=== PATIENT | female | born 1985 | race Caucasian/White ===

== ENCOUNTER → 2022-07-07 08:53 | Outpatient (BNVA) | payer MEDICARE, MEDICAID, SELFPAY | PROVIDERS: PCP Internal Medicine; Referring Provider Internal Medicine; Visit Provider Surgery | DX: E11.9 Type 2 diabetes mellitus without complications (principal); J45.909 Unspecified asthma, uncomplicated; E66.9 Obesity, unspecified; R10.9 Unspecified abdominal pain | CPT/HCPCS: 99203 ==

== ENCOUNTER 2023-08-18 10:50 | Emergency (ER) | payer MEDICARE, MEDICAID, SELFPAY ==
[2023-08-18 10:59] VITALS: BP 140/72; PULSE 100; RESP 20; TEMP 37.2; O2SAT 99
--- OUTSIDE RECORDS SUMMARY | 2023-08-18 11:08 | XMS_ITS | Continuity of Care Document ---
Author Name Unknown Organization [facility] Address [address] [place] [address] Care Team Providers Care Neurosurgical Physician Assistant Name Role Phone Mari Diggs Primary Care Physician [phone] Encounter [facility] Date(s): 01/27/23 - 01/27/[address] [address] Discharge Disposition: Home Allergies, Adverse Reactions, Alerts Substance Reaction Severity Status GRAPEFRUIT Unknown Active penicillins Urticaria Unknown Active sulfa drugs Swollen face Unknown Active Cilantro Unknown Active Assessment and Plan Future Appointments Future Scheduled Tests Laboratory* Hemoglobin A1c 12/26/22 Radiology* MG Mammo Diagnostic Bilateral w/ Negrito 01/27/23 * US Breast Limited Left 01/26/23 Immunizations Given and Recorded Vaccine Date Status Refusal Reason influenza virus vaccine, inactivated 08/08/22 Give n influenza virus vaccine, inactivated 09/23/16 Preet rded influenza virus vaccine, inactivated 07/19/11 Preet rded influenza virus vaccine, live 07/20/21 Recorded influenza virus vaccine, live 07/11/20 Recorded influenza virus vaccine, live 1 09/05/19 Recorded SARS-CoV-2 (COVID-19) mRNA-1273 vaccine 03/09/21 R ecorded SARS-CoV-2 (COVID-19) mRNA-1273 vaccine 02/09/21 R ecorded tetanus/diphth/pertuss (Tdap) adult/adol 10/07/10 Recorded 1Result Comment: pt tolerated well Medications AAA - Misc Prescription 1 strip, 100 EA, USE 1 STRIP TO CHECK GLUCOSE ONCE DAILY, # 100 strip, 0 Refill(s) Start Date: 03/04/22 Status: Ordered buPROPion 300 mg/24 hours (XL) oral tablet, extended release 300 mg = 1 tab, Oral, every morning, # 30 tab, 2 Refill(s), Pharmacy: [facility], 163, cm, 07/01/22 17:43:00 EDT, Height/Length Dosing, 126, kg, 07/01/22 17:43:00 EDT, Weight Dosing Start Date: 11/07/22 Stop Date: 02/05/23 Status: Ordered gabapentin 300 mg oral capsule 300 mg = 1 cap, Oral, every night at bedtime, 28 cap, # 30 cap, 2 Refill(s), Pharmacy: [facility], 163, cm, 07/01/22 17:43:00 EDT, Height/Length Dosing, 126, kg, 07/01/22 17:43:00 EDT, Weight Dosing Start Date: 01/26/23 Status: Ordered hydroCHLOROthiazide 25 mg oral tablet 25 mg = 1 tab, Oral, Daily, 28 tab, 0 Refill(s) Start Date: 03/04/22 Status: Ordered lisinopril 20 mg oral tablet 20 mg = 1 tab, Oral, Daily, # 90 tab, 3 Refill(s), Pharmacy: [facility] Start Date: 04/01/22 Stop Date: 03/27/23 Status: Ordered loratadine 10 mg oral tablet 10 mg = 1 tab, Oral, Daily, # 90 tab, 3 Refill(s), Pharmacy: [facility] Start Date: 04/01/22 Stop Date: 03/27/23 Status: Ordered LORazepam 0.5 mg oral tablet 0.5 mg = 1 tab, Oral, TID, # 84 tab, 1 Refill(s), Pharmacy: [facility], 163, cm, 07/01/22 17:43:00 EDT, Height/Length Dosing, 126, kg, 07/01/22 17:43:00 EDT, Weight Dosing Start Date: 12/31/22 Stop Date: 02/25/23 Status: Ordered LORazepam 1 mg oral tablet 1 mg = 1 tab, Oral, BID, # 14 tab, 1 Refill(s), Pharmacy: [facility], 163, cm, 07/01/22 17:43:00 EDT, Height/Length Dosing, 126, kg, 07/01/22 17:43:00 EDT, Weight Dosing Start Date: 11/07/22 Stop Date: 11/21/22 Status: Ordered omeprazole 40 mg oral delayed release capsule 40 mg = 1 cap, Oral, Daily, # 90 cap, 3 Refill(s), Pharmacy: [facility] Start Date: 04/01/22 Stop Date: 03/27/23 Status: Ordered ONETOUCH DELICA CHRISTIE 33G MIS ONETOUCH DELICA CHRISTIE 33G MIS, use as directed to teest blood sugar once daily Start Date: 05/12/22 Status: Ordered ONETOUCH ULTRA 2 KIT ONETOUCH ULTRA 2 KIT, use as diredcted to check glucose once daily, 0 Refill(s) Start Date: 05/12/22 Status: Ordered Rexulti 4 mg oral tablet 4 mg = 1 tab, Oral, Daily, # 30 tab, 2 Refill(s), Pharmacy: [facility], 163, cm, 07/01/22 17:43:00 EDT, Height/Length Dosing, 126, kg, 07/01/22 17:43:00 EDT, Weight Dosing Start Date: 11/07/22 Stop Date: 02/05/23 Status: Ordered Vitamin B6 100 mg oral tablet 100 mg = 1 tab, Oral, TID w/ Meals, for 30 days, # 90 tab, 2 Refill(s), Pharmacy: [facility], 163, cm, 07/01/22 17:43:00 EDT, Height/Length Dosing, 126, kg, 07/01/22 17:43:00 EDT, Weight Dosing Start Date: 11/07/22 Stop Date: 02/05/23 Status: Ordered Vitamin D3 2000 intl units oral capsule 2 caps, Oral, Daily, # 180 cap, 3 Refill(s), Pharmacy: [facility] Start Date: 03/05/22 Stop Date: 02/28/23 Status: Ordered Wellbutrin XL 150 mg/24 hours oral tablet, extended release 150 mg = 1 tab, Oral, every morning, for 30 days, # 30 tab, 2 Refill(s), [facility], cm, 07/01/22 17:43:00 EDT, Height/Length Dosing, 126, kg, 07/01/22 17:43:00 EDT, Weight Dosing Start Date: 11/07/22 Stop Date: 02/05/23 Status: Ordered Problem List Condition Confirmation Course Effective Dates Status H ealth Status Informant Anxiety disorder Confirmed 10/26/18 Active Left breast mass Confirmed Active Fatigue Confirmed Active Hypertensive disorder Confirmed Active Leukocytosis Confirmed 10/18/20 Active Mixed hyperlipidemia Confirmed Active Nightmares associated with chronic post-traumatic stress disorder Confirmed Active Obstructive sleep apnea Confirmed Active Panic disorder without agoraphobia Confirmed Active Medication management Confirmed Active Polycystic ovaries Confirmed Active Posttraumatic stress disorder Confirmed Active Restless legs syndrome Confirmed Active Tremor Confirmed 06/14/21 Active Trigeminal neuralgia Confirmed Active DM2 (diabetes mellitus, type 2) Confirmed Active Vitamin D deficiency Confirmed Active Procedures Procedure Date Related Diagnosis Body Site Status TLH, DAVE, lap. USVVS 05/15/20 Compl eted PAP smear preparation 1 01/10/19 C ompleted Laparoscopic bilateral salpingectomy 10/03/18 Completed Mammogram - screening 03/07/15 Com pleted Left wrist mass excision 2013 Completed Dilation and curettage 2 10/18/11 Completed Tonsillectomy and adenoidectomy 10/18/96 Completed Fatty tumor removal Compl eted 1Due next 2023 in December. Neg. 2For inevitable SAB Social History Social History Type Response Tobacco Current everyday tob acco user Tobacco Use:. 1 PPD per day. Sex Female Patient Care team information Care Team Personnel Name: Mari Diggs Position: Physician Member Role: Primary Care Physician Address: Address: [facility] [id number] [place] [address] Name: Rl Harmon [address] Position: Dietitian Member Role: Resolution Analyst Care Team Related Persons Name: MAGY STEVE Address: Home [address] [place] [phone]
--- OUTSIDE RECORDS SUMMARY | 2023-08-18 11:08 | XMS_ITS | Continuity of Care Document ---
Author Name Unknown Organization [facility] Address [address] [place] [address] Care Team Providers Care Program Counselor Name Role Phone Mari Diggs Primary Care Physician Encounter [facility] [id number] Date(s): 10/09/22 - 10/09/[address] [address] Discharge Disposition: Home or Self Care Attending Physician: Mari Diggs Admitting Physician: Mari Diggs Referring Physician: Mari Diggs Allergies, Adverse Reactions, Alerts Substance Reaction Severity Status GRAPEFRUIT Unknown Active penicillins Urticaria Unknown Active sulfa drugs Swollen face Unknown Active Assessment and Plan Future Appointments Immunizations Given and Recorded Vaccine Date Status [...] 0 Refill(s) Start Date: 03/04/22 Status: Ordered azithromycin 250 mg oral tablet See Instructions, take 2 tabs on day 1 and 1 tabs on day 2-5, # 6 tab, 0 Refill(s), Pharmacy: [id number], 163, cm, 07/01/22 17:43:00 EDT, Height/Length Dosing, 126, kg, 07/01/22 17:43:00 EDT, Weight Dosing Start Date: 10/09/22 Status: Ordered buPROPion 300 mg/24 hours (XL) oral tablet, extended release 300 mg = 1 tab, Oral, every morning, # 30 tab, 2 Refill(s), Pharmacy: [facility], 163, cm, 07/01/22 17:43:00 EDT, Height/Length Dosing, 126, kg, 07/01/22 17:43:00 EDT, Weight Dosing Start Date: 10/08/22 Stop Date: 01/06/23 Status: Ordered gabapentin 300 mg oral capsule 300 mg = 1 cap, Oral, every night at bedtime, 28 cap, # 30 cap, 2 Refill(s), Pharmacy: [facility], 163, cm, 07/01/22 17:43:00 EDT, Height/Length Dosing, 126, kg, 07/01/22 17:43:00 EDT, Weight Dosing Start Date: 10/07/22 Status: Ordered hydroCHLOROthiazide 25 mg oral tablet 25 mg = 1 tab, Oral, Daily, 28 tab, 0 Refill(s) Start Date: 03/04/22 Status: Ordered Imodium Multi-Symptom Relief 2 mg-125 mg oral tablet 1 tab, Oral, every 6 hr, PRN as needed for loose stool, # 40 tab, 0 Refill(s), Pharmacy: [id number], 163, cm, 07/01/22 17:43:00 EDT, Height/Length Dosing, 126, kg, 07/01/22 17:43:00 EDT, Weight Dosing Start Date: 09/10/22 Status: Ordered ipratropium-albuterol 0.5 mg-2.5 mg/3 mL inhalation solution 3 mL, NEB, QID, # 30 EA, 0 Refill(s), Pharmacy: [facility], 163, cm, 07/01/22 17:43:00 EDT, Height/Length Dosing, 126, kg, 07/01/22 17:43:00 EDT, Weight Dosing Start Date: 10/09/22 Status: Ordered ipratropium-albuterol CFC free 20 mcg-100 mcg/inh inhalation aerosol 1 puffs, Inhale, QID, # 4 g, 0 Refill(s), Pharmacy: [facility] [facility] [id number], 163, cm, 07/01/22 17:43:00 EDT, Height/Length Dosing, 126, kg, 07/01/22 17:43:00 EDT, Weight Dosing Start Date: 10/09/22 Status: Ordered lisinopril 20 mg oral tablet 20 mg = 1 tab, Oral, Daily, # 90 tab, 3 Refill(s), Pharmacy: [facility] Start Date: 04/01/22 Stop Date: 03/27/23 Status: Ordered loratadine 10 mg oral tablet 10 mg = 1 tab, Oral, Daily, # 90 tab, 3 Refill(s), Pharmacy: [facility] Start Date: 04/01/22 Stop Date: 03/27/23 Status: Ordered LORazepam 1 mg oral tablet 1 mg = 1 tab, Oral, BID, Please fill 09/15/2022, # 14 tab, 1 Refill(s), Pharmacy: [facility], 163, cm, 07/01/22 17:43:00 EDT, Height/Length Dosing, 126, kg, 07/01/22 17:43:00 EDT, Weight Dosing Start Date: 09/05/22 Stop Date: 09/19/22 Status: Ordered nicotine 21 mg/24 hr transdermal film, extended release 1 patches, TD, Daily, # 21 patches, 0 Refill(s), Pharmacy: [facility], 162, cm, 04/07/22 9:11:00 EDT, Height/Length Dosing, 130, kg, 04/07/22 9:11:00 EDT, Weight Dosing Start Date: 06/09/22 Status: Ordered omeprazole 40 mg oral delayed release capsule 40 mg = 1 cap, Oral, Daily, # 90 cap, 3 Refill(s), Pharmacy: [facility] Start Date: 04/01/22 Stop Date: 03/27/23 Status: Ordered ONETOUCH DELICA CHRISTIE 33G MIS ONETOUCH DELICA CHRISTIE 33G MIS, use as directed to teest blood sugar once daily Start Date: 05/12/22 Status: Ordered ONETOUCH ULTRA 2 KIT ONETOUCH ULTRA 2 KIT, use as diredcted to check glucose once daily, 0 Refill(s) Start Date: 05/12/22 Status: Ordered Reguloid oral powder for reconstitution 3.4 g =, Oral, Daily, for 90 days, # 102 g, 0 Refill(s), [facility], 162, cm, 04/07/22 9:11:00 EDT, Height/Length Dosing, 130, kg, 04/07/22 9:11:00 EDT, Weight Dosing Start Date: 06/18/22 Status: Ordered Rexulti 4 mg oral tablet 4 mg = 1 tab, Oral, Daily, # 30 tab, 2 Refill(s), Pharmacy: [facility], 163, cm, 07/01/22 17:43:00 EDT, Height/Length Dosing, 126, kg, 07/01/22 17:43:00 EDT, Weight Dosing Start Date: 09/05/22 Stop Date: 12/04/22 Status: Ordered Trulicity Pen 3 mg/0.5 mL subcutaneous solution 3 mg = 0.5 mL, Subcutaneous, every week, rotate injection sites Note dose increase, # 6 mL, 1 Refill(s), Pharmacy: [facility], 163, cm, 07/01/22 17:43:00 EDT, Height/Length Dosing, 126,kg, 07/01/22 17:43:00 EDT, Weight Dosing Start Date: 07/15/22 Status: Ordered Vitamin B6 100 mg oral tablet 100 mg = 1 tab, Oral, TID w/ Meals, for 30 days, # 90 tab, 2 Refill(s), Pharmacy: [facility], 163, cm, 07/01/22 17:43:00 EDT, Height/Length Dosing, 126, kg, 07/01/22 17:43:00 EDT, Weight Dosing Start Date: 08/04/22 Stop Date: 11/02/22 Status: Ordered Vitamin D3 2000 intl units oral capsule 2 caps, Oral, Daily, # 180 cap, 3 Refill(s), Pharmacy: [facility] Start Date: 03/05/22 Stop Date: 02/28/23 Status: Ordered Wellbutrin XL 150 mg/24 hours oral tablet, extended release 150 mg = 1 tab, Oral, every morning, for 30 days, # 30 tab, 2 Refill(s), Pharmacy: [facility], 163, cm, 07/01/22 17:43:00 EDT, Height/Length Dosing, 126, kg, 07/01/22 17:43:00 EDT, Weight Dosing Start Date: 08/04/22 Stop Date: 11/02/22 Status: Ordered Problem List Condition Confirmation Course Effective Dates Status H ealth Status Informant Anxiety disorder Confirmed 10/26/18 Active Post-traumatic stress disorder, chronic Confirmed Active Fatigue Confirmed Active Hypertensive disorder Confirmed Active Leukocytosis Confirmed 10/18/20 Active Mixed hyperlipidemia Confirmed Active Moderately severe recurrent major depression Confirmed 09/24/21 Active Nightmares associated with chronic post-traumatic stress disorder Confirmed Active Obstructive sleep apnea Confirmed Active Panic disorder without agoraphobia Confirmed Active Polycystic ovaries Confirmed Active Posttraumatic stress disorder Confirmed Active Restless legs syndrome Confirmed Active Tremor Confirmed 06/14/21 Active Trigeminal neuralgia Confirmed Active DM2 (diabetes mellitus, type 2) Confirmed Active Vitamin D deficiency Confirmed Active Procedures Procedure Date Related Diagnosis Body Site Status TLH, DAVE, lap. USVVS 05/15/20 Compl eted Laparoscopic bilateral salpingectomy 10/03/18 Completed Left wrist mass excision 2013 Completed Dilation and curettage 1 10/18/11 Completed Tonsillectomy and adenoidectomy 10/18/96 Completed Fatty tumor removal Compl eted 1For inevitable SAB Results Laboratory List Name Date SARS-CoV-2 (COVID-19)/Flu/RSV ([facility]Xpert ) 10/09/22 Most recent to oldest [Reference Range]: 1 Employed in healthcare? No *NA* (10/09/22 9:48 AM) Symptomatic as defined by CDC? Yes *NA* (10/09/22 9:48 AM) Date of onset (Lab) 02-OCT-2022 *Unknown* (10/09/22 9:48 AM) Hospitalized due to COVID-19? No *NA* (10/09/22 9:48 AM) In ICU? No *NA* (10/09/22 9:48 AM) Group care resident? No *NA* (10/09/22 9:48 AM) status? Not *NA* (10/09/22 9:48 AM) SARS-CoV-2(Covid19)PCR([facility]Xpert COVFLURSV) [Negative] Negative (10/09/22 9:48 AM) Flu A ([facility]Xpert COVFLURSV) [Negative] Nega tive (10/09/22 9:48 AM) RSV ([facility]pert COVFLURSV) [Negative] Negati ve (10/09/22 9:48 AM) Flu B ([facility]Xpert COVFLURSV) [Negative] Nega tive (10/09/22 9:48 AM) Social History Social History Type Response Tobacco Current everyday tob acco user Tobacco Use:. 1 PPD per day. Sex Female Patient Care team information Personnel Name: Mari Diggs Address: Address: [facility] [address]
--- OUTSIDE RECORDS SUMMARY | 2023-08-18 11:09 | XMS_ITS | Continuity of Care Document ---
Author Name Unknown Organization [facility] Address [address] [place] [address] Care Team Providers Care Boiler Plant Worker Name Role Phone Mari Diggs Primary Care Physician Encounter [facility] [id number] Date(s): 02/12/23 - 02/12/[address] [phone] [place] Encounter Diagnosis Left breast mass(Discharge Diagnosis) - 02/12/23 Discharge Disposition: Home or Self Care Attending Physician: Avtar Goldberg MD Admitting Physician: Avtar Goldberg MD Referring Physician: Avtar Goldberg MD Allergies, Adverse Reactions, Alerts Substance Reaction Severity Status GRAPEFRUIT Unknown Active penicillins Urticaria Unknown Active sulfa drugs Swollen face Unknown Active Cilantro Unknown Active Assessment and Plan Future Appointments Future Scheduled Tests Laboratory* Comprehensive Metabolic Panel 02/05/23 * Hemoglobin A1c 12/26/22 * Hemoglobin A1c 02/05/23 Immunizations Given and Recorded Vaccine Date Status [...] morning, # 30 tab, 2 Refill(s), Pharmacy: [facility], 163, cm, 07/01/22 17:43:00 EDT, Height/Length Dosing, 126, kg, 07/01/22 17:43:00 EDT, Weight Dosing Start Date: 11/07/22 Stop Date: 02/05/23 Status: Ordered gabapentin 300 mg oral capsule 300 mg = 1 cap, Oral, every night at bedtime, 28 cap, # 30 cap, 2 Refill(s), Pharmacy: [facility], 163, cm, 07/01/22 17:43:00 EDT, Height/Length Dosing, 126, kg, 07/01/22 17:43:00 EDT, Weight Dosing Start Date: 01/26/23 Status: Ordered hydroCHLOROthiazide 25 mg oral tablet 25 mg = 1 tab, Oral, Daily, 28 tab, 0 Refill(s) Start Date: 03/04/22 Status: Ordered lisinopril 20 mg oral tablet 20 mg = 1 tab, Oral, Daily, # 90 tab, 3 Refill(s), Pharmacy: [facility] Start Date: 04/01/22 Stop Date: 03/27/23 Status: Ordered loratadine 10 mg oral tablet 10 mg = 1 tab, Oral, Daily, # 90 tab, 3 Refill(s), Pharmacy: [facility] Start Date: 04/01/22 Stop Date: 03/27/23 Status: Ordered LORazepam 0.5 mg oral tablet 0.5 mg = 1 tab, Oral, TID, # 84 tab, 2 Refill(s), Pharmacy: [facility], 163, cm, 07/01/22 17:43:00 EDT, Height/Length Dosing, 126, kg, 07/01/22 17:43:00 EDT, Weight Dosing Start Date: 02/06/23 Stop Date: 05/01/23 Status: Ordered magnesium oxide 500 mg oral capsule 500 mg = 1 cap, Oral, Daily, # 90 cap, 3 Refill(s) Start Date: 02/05/23 Stop Date: 05/06/23 Status: Ordered omeprazole 40 mg oral delayed release capsule 40 mg = 1 cap, Oral, Daily, # 90 cap, 3 Refill(s), Pharmacy: [facility] Start Date: 04/01/22 Stop Date: 03/27/23 Status: [...] Daily, # 30 tab, 2 Refill(s), Pharmacy: [facility], 163, cm, 07/01/22 17:43:00 EDT, Height/Length Dosing, 126, kg, 07/01/22 17:43:00 EDT, Weight Dosing Start Date: 11/07/22 Stop Date: 02/05/23 Status: Ordered Trulicity Pen 0.75 mg/0.5 mL subcutaneous solution 0.75 mg = 0.5 mL, Subcutaneous, every week, rotate injection sites, # 2.5 mL, 11 Refill(s), Pharmacy: [facility], 163, cm, 07/01/22 17:43:00 EDT, Height/Length Dosing, 126, kg, 07/01/2217:43:00 EDT, Weight Dosing Start Date: 02/05/23 Stop Date: 01/31/24 Status: Ordered Vitamin B6 100 mg oral tablet 100 mg = 1 tab, Oral, TID w/ Meals, for 30 days, # 90 tab, 2 Refill(s), Pharmacy: [facility], 163, cm, 07/01/22 17:43:00 EDT, Height/Length Dosing, 126, kg, 07/01/22 17:43:00 EDT, Weight Dosing Start Date: 11/07/22 Stop Date: 02/05/23 Status: Ordered Vitamin D3 2000 intl units oral capsule 2 caps, Oral, Daily, # 180 cap, 3 Refill(s), Pharmacy: [facility] Start Date: 03/05/22 Stop Date: 02/28/23 Status: Ordered Wellbutrin XL 150 mg/24 hours oral tablet, extended release 150 mg = 1 tab, Oral, every morning, for 30 days, # 30 tab, 2 Refill(s), Pharmacy: [facility], 163, cm, 07/01/22 17:43:00 EDT, Height/Length Dosing, 126, kg, 07/01/22 17:43:00 EDT, Weight Dosing Start Date: 11/07/22 Stop Date: 02/05/23 Status: Ordered Problem List Condition Confirmation Course Effective Dates Status H ealth Status Informant Anxiety disorder Confirmed 10/26/18 Active Left breast mass Confirmed Active Chronic constipation Confirmed Active Fatigue Confirmed Active Hypertensive disorder [...] Primary Care Physician Address: Address: [facility] [id number] [place] [address] Name: Rl Harm[address] Position: Dietitian Member Role: Appliance Repairer Care Team Related Persons Name: MAGY STEVE Address: [address], [id number]
--- OUTSIDE RECORDS SUMMARY | 2023-08-18 11:09 | XMS_ITS | Continuity of Care Document ---
Author Name Unknown Organization [facility] Address [address] [place] [address] Care Team Providers Care Lease Out Man Name Role Phone Mari Diggs Primary Care Physician [phone] [facility] [id number] Date(s): 09/10/22 - 09/10/[address] [address] Discharge Disposition: Home or Self Care Attending Physician: Konstantin Hernandes NP Admitting Physician: Konstantin Hernandes TEXTILE DESIGNS SALES REPRESENTATIVE Allergies, Adverse Reactions, Alerts Substance Reaction Severity [...] 0 Refill(s) Start Date: 03/04/22 Status: Ordered Belsomra 5 mg oral tablet Start Date: 05/12/22 Status: Ordered buPROPion 300 mg/24 hours (XL) oral tablet, extended release 300 mg = 1 tab, Oral, every morning, # 30 tab, 2 Refill(s), Pharmacy: [facility], 163, cm, 07/01/22 17:43:00 EDT, Height/Length Dosing, 126, kg, 07/01/22 17:43:00 EDT, Weight Dosing Start Date: 08/04/22 Stop Date: 11/02/22 Status: Ordered docusate sodium 100 mg oral capsule 200 mg = 2 cap, Oral, Daily, PRN constipation, # 180 cap, 3 Refill(s), Pharmacy: [facility], 163, cm, 07/01/22 17:43:00 EDT, Height/Length Dosing, 126, kg, 07/01/22 17:43:00 EDT, WeightDosing Start Date: 07/22/22 Stop Date: 07/17/23 Status: Ordered doxycycline hyclate 100 mg oral capsule 100 mg = 1 cap, Oral, BID, # 20 cap, 0 Refill(s), Pharmacy: [facility], 162, cm, 04/07/22 9:11:00 EDT, Height/Length Dosing, 130, kg, 04/07/22 9:11:00 EDT, Weight Dosing Start Date: 06/26/22 Stop Date: 07/06/22 Status: Ordered gabapentin 300 mg oral capsule 300 mg = 1 cap, Oral, every night at bedtime, 28 cap, # 30 cap, 2 Refill(s), Pharmacy: [facility], 163, cm, 07/01/22 17:43:00 EDT, Height/Length Dosing, 126, kg, 07/01/22 17:43:00 EDT, Weight Dosing Start Date: 07/21/22 Status: Ordered hydroCHLOROthiazide 25 mg oral tablet 25 mg = 1 tab, Oral, Daily, 28 tab, 0 Refill(s) Start Date: 03/04/22 Status: Ordered Imodium Multi-Symptom Relief 2 mg-125 mg oral tablet 1 tab, Oral, every 6 hr, PRN as needed for loose stool, # 40 tab, 0 Refill(s), Pharmacy: [facility], 163, cm, 07/01/22 17:43:00 EDT, Height/Length Dosing, 126, kg, 07/01/22 17:43:00 EDT, Weight Dosing Start Date: 09/10/22 Status: Ordered lisinopril 20 mg oral tablet 20 mg = 1 tab, Oral, Daily, # 90 tab, 3 Refill(s), Pharmacy: [facility] Start Date: 04/01/22 Stop Date: 03/27/23 Status: Ordered loratadine 10 mg oral tablet 10 mg = 1 tab, Oral, Daily, # 90 tab, 3 Refill(s), Pharmacy: [facility] Start Date: 04/01/22 Stop Date: 03/27/23 Status: Ordered LORazepam 0.5 mg oral tablet 0.5 mg = 1 tab, Oral, TID, # 84 tab, 2 Refill(s), Pharmacy: [facility], 163, cm, 07/01/22 17:43:00 EDT, Height/Length Dosing, 126, kg, 07/01/22 17:43:00 EDT, Weight Dosing Start Date: 08/04/22 Stop Date: 10/27/22 Status: Ordered LORazepam 1 mg oral tablet 1 mg = 1 tab, Oral, BID, Please fill 09/15/2022, # 14 tab, 1 Refill(s), Pharmacy: [facility], 163, cm, 07/01/22 17:43:00 EDT, Height/Length Dosing, 126, kg, 07/01/22 17:43:00 EDT, Weight Dosing Start Date: 09/05/22 Stop Date: 09/19/22 Status: Ordered MiraLax oral powder for reconstitution 17 g, Oral, Daily, dissolve in water before taking, # 255 g, 0 Refill(s), [facility], 162, cm, 04/07/22 9:11:00 EDT, Height/Length Dosing, 130, kg, 04/07/22 9:11:00 EDT, Weight Dosing Start Date: 06/30/22 Status: Ordered nicotine 21 mg/24 hr transdermal film, extended release 1 patches, TD, Daily, # 21 patches, 0 Refill(s), Pharmacy: [facility], 162, cm, 04/07/22 9:11:00 EDT, Height/Length Dosing, 130, kg, 04/07/22 9:11:00 EDT, Weight Dosing Start Date: 06/09/22 Status: Ordered omeprazole 40 mg oral delayed release capsule 40 mg = 1 cap, Oral, Daily, # 90 cap, 3 Refill(s), Pharmacy: [facility] Start Date: 04/01/22 Stop Date: 03/27/23 [...] days, # 102 g, 0 Refill(s), Pharmacy: [facility], 162, cm, 04/07/22 9:11:00 EDT, Height/Length Dosing, 130, kg, 04/07/22 9:11:00 EDT, Weight Dosing Start Date: 06/18/22 Status: Ordered Rexulti 3 mg oral tablet 3 mg = 1 tab, Oral, Daily, # 30 tab, 2 Refill(s), Pharmacy: [facility], 163, cm, 07/01/22 17:43:00 EDT, Height/Length Dosing, 126, kg, 07/01/22 17:43:00 EDT, Weight Dosing Start Date: 08/04/22 Stop Date: 11/02/22 Status: Ordered Rexulti 4 mg oral tablet 4 mg = 1 tab, Oral, Daily, # 30 tab, 2 Refill(s), Pharmacy: [facility], 163, cm, 07/01/22 17:43:00 EDT, Height/Length Dosing, 126, kg, 07/01/22 17:43:00 EDT, Weight Dosing Start Date: 09/05/22 Stop Date: 12/04/22 Status: Ordered senna 8.6 mg oral tablet 17.2 mg = 2 tab, Oral, Daily, PRN constipation, # 60 tab, 0 Refill(s), Pharmacy: [facility], 163, cm, 07/01/22 17:43:00 EDT, Height/Length Dosing, 126, kg, 07/01/22 17:43:00 EDT, WeightDosing Start Date: 07/02/22 Status: Ordered Trulicity Pen 3 mg/0.5 mL subcutaneous solution 3 mg = 0.5 mL, Subcutaneous, every week, rotate injection sites Note dose increase, # 6 mL, 1 Refill(s), Pharmacy: [facility], 163, cm, 07/01/22 17:43:00 EDT, Height/Length Dosing, 126,kg, 07/01/22 17:43:00 EDT, Weight Dosing Start Date: 07/15/22 Status: Ordered Vitamin B6 100 mg oral tablet 100 mg = 1 tab, Oral, TID w/ Meals, for 30 days, # 90 tab, 2 Refill(s), Pharmacy: [facility], 163, cm, 07/01/22 17:43:00 EDT, Height/Length Dosing, 126, kg, 07/01/22 17:43:00 EDT, Weight Dosing Start Date: 08/04/22 Stop Date: 11/02/22 Status: Ordered VITAMIN D3 CAP 5000UNIT VITAMIN D3 CAP 5000UNIT, 1 cap, Oral, Daily Start Date: 05/12/22 Status: Ordered Vitamin D3 2000 intl units oral capsule 2 caps, Oral, Daily, # 180 cap, 3 Refill(s), Pharmacy: [facility] Start Date: 03/05/22 Stop Date: 02/28/23 Status: Ordered Wellbutrin XL 150 mg/24 hours oral tablet, extended release 150 mg = 1 tab, Oral, every morning, for 30 days, # 30 tab, 2 Refill(s), Pharmacy: [facility], 163, cm, 07/01/22 17:43:00 EDT, Height/Length Dosing, [...] inevitable SAB Results Laboratory List Name Date Automated Diff 09/10/22 CBC w/ Diff 09/10/22 Comprehensive Metabolic Panel (CMP) 08/20 01/07 Hemoglobin A1c 09/10/22 Most recent to oldest [Reference Range]: 1 WBC [5.0-10.0 x10^3/mcL] 13.9 x10^3/mcL *HI* (09/10/22 2:48 PM) RBC [4.1-5.3 x10^6/mcL] 4.7 x10^6/mcL (09/10/22 2:48 PM) Neutro Auto [40.0-75.0 %] 67.1 % (09/10/22 2:48 PM) Lymph Auto [20.0-50.0 %] 25.3 % (09/10/22 2:48 PM) Isabella Auto [2.0-15.0 %] 5.3 % (09/10/22 2:48 PM) Basophil Auto [0.0-1.0 %] 0.3 % (09/10/22 2:48 PM) BUN [7-18 mg/dL] 12 mg/dL (09/10/22 2:48 PM) Glucose Level [74-106 mg/dL] 99 mg/dL (09/10/22 2:48 PM) Potassium Level [3.5-5.1 mmol/L] 3.6 mmo l/L (09/10/22 2:48 PM) MCV [80.0-96.0] 88.3 (09/10/22 2:48 PM) AST [15-37 unit/L] 27 unit/L (09/10/22 2:48 PM) ALT [14-59 unit/L] 57 unit/L (09/10/22 2:48 PM) MCHC [31.0-35.0 g/dL] 32.5 g/dL (09/10/22 2:48 PM) Sodium Level [136-145 mmol/L] 138 mmol/L (09/10/22 2:48 PM) Hct [37.0-47.0 %] 41.6 % (09/10/22 2:48 PM) Calcium Level [8.5-10.1 mg/dL] 9.6 mg/dL (09/10/22 2:48 PM) Albumin Level [3.4-5.0 g/dL] 3.6 g/dL (09/10/22 2:48 PM) Protein Total [6.4-8.2 g/dL] 7.5 g/dL (09/10/22 2:48 PM) MCH [26.0-32.0 pg] 28.7 pg (09/10/22 2:48 PM) Neutro Absolute 9.4 x10^3/mcL *NA* (09/10/22 2:48 PM) Bilirubin Total [0.2-1.0 mg/dL] 0.2 mg/d L (09/10/22 2:48 PM) Hgb [12.0-16.0 g/dL] 13.5 g/dL (09/10/22 2:48 PM) Alk Phos [46-146 unit/L] 88 unit/L (09/10/22 2:48 PM) Platelets [130-450 x10^3/mcL] 401 x10^3/ mcL (09/10/22 2:48 PM) CO2 [21-32 mmol/L] 30 mmol/L (09/10/22 2:48 PM) eGFR Non-AA [>=60] 81 (09/10/22 2:48 PM) eGFR AA [>=60] 81 (09/10/22 2:48 PM) Hemoglobin A1c [4.0-6.0 %] 5.5 % (09/10/22 2:48 PM) Chloride Level [98-107 mmol/L] 101 mmol/ L (09/10/22 2:48 PM) RDW-CV [11.7-17.0 %] 15.0 % (09/10/22 2:48 PM) Imm Gran Auto [0.0-0.9 %] 0.4 % (09/10/22 2:48 PM) Creatinine Level [0.55-1.02 mg/dL] 0.93 mg/dL (09/10/22 2:48 PM) Eos, Auto [1.0-6.0 %] 1.6 % (09/10/22 2:48 PM) Social History Social History Type Response Tobacco Current everyday tob acco user Tobacco Use:. 1 PPD per day. Sex Female Patient Care team information Personnel Name: Mari Diggs Address: Address: [facility] [address] [address] [place]
--- OUTSIDE RECORDS SUMMARY | 2023-08-18 11:09 | XMS_ITS | Continuity of Care Document ---
Author Name Unknown Organization [facility] Address [address] [place] [address] Care Team Providers Care Sewing Machines Salesperson Name Role Phone Mari Diggs Primary Care Physician [facility] [id number] Date(s): 01/27/23 - 01/27/[address] [address] Discharge Disposition: Home Allergies, Adverse Reactions, Alerts [...] morning, # 30 tab, 2 Refill(s), Pharmacy: [facility], 163, cm, 07/01/22 17:43:00 EDT, Height/Length Dosing, 126, kg, 07/01/22 17:43:00 EDT, Weight Dosing Start Date: 11/07/22 Stop Date: 02/05/23 Status: Ordered gabapentin 300 mg oral capsule 300 mg = 1 cap, Oral, every night at bedtime, 28 cap, # 30 cap, 2 Refill(s), Pharmacy: [facility], 163, cm, 07/01/22 17:43:00 EDT, [...] TID, # 84 tab, 1 Refill(s), Pharmacy: [facility], 163, cm, 07/01/22 17:43:00 EDT, Height/Length Dosing, 126, kg, 07/01/22 17:43:00 EDT, Weight Dosing Start Date: 12/31/22 Stop Date: 02/25/23 Status: Ordered LORazepam 1 mg oral tablet 1 mg = 1 tab, Oral, BID, # 14 tab, 1 Refill(s), Pharmacy: [facility], 163, cm, 07/01/22 17:43:00 EDT, [...] days, # 90 tab, 2 Refill(s), [facility], 163, cm, 07/01/22 17:43:00 EDT, Height/Length Dosing, 126, kg, 07/01/22 17:43:00 EDT, Weight Dosing Start Date: 11/07/22 Stop Date: 02/05/23 Status: Ordered Vitamin D3 2000 intl units oral capsule 2 caps, Oral, Daily, # 180 cap, 3 Refill(s), Pharmacy: [facility] Start Date: 03/05/22 Stop Date: 02/28/23 Status: Ordered Wellbutrin XL 150 mg/24 hours oral tablet, extended release 150 mg = 1 tab, Oral, every morning, for 30 days, # 30 tab, 2 Refill(s), Pharmacy: [facility] [place], 163, cm, 07/01/22 17:43:00 EDT, Height/Length Dosing, [...] Primary Care Physician Address: Address: [facility] [id number] [place] [address] Name: Rl Harmon RD Position: Dietitian Member Role: Federal Law Clerk Care Team Related Persons Name: MAGY STEVE Address: Home [address] [place] [phone]
--- OUTSIDE RECORDS SUMMARY | 2023-08-18 11:09 | XMS_ITS | Continuity of Care Document ---
Author Name Unknown Organization [facility] Address [address] [place] [address] Care Team Providers Care Quality Engineer Name Role Phone Mari Diggs Primary Care Physician En[facility] [id number] Date(s): 11/07/22 - 11/07/[address] [address] Discharge Disposition: Home or Self Care Attending Physician: Gaby Mac DNP Admitting Physician: Gaby Mac DNP Allergies, Adverse Reactions, Alerts Substance Reaction Severity Status GRAPEFRUIT Unknown Active penicillins Urticaria Unknown Active sulfa drugs Swollen face Unknown Active Cilantro Unknown Active Assessment and Plan Future Appointments Diagnostic Tests Pending * Benzodiazepines Cnfrm, Ur [place] 11/07/22 Future Scheduled Tests Laboratory* Hemoglobin A1c 11/05/22 Immunizations Given and Recorded Vaccine Date Status [...] tab, 2 Refill(s), Pharmacy: [facility], 163, cm, 07/01/22 17:43:00 EDT, Height/Length Dosing, 126, kg, 07/01/22 17:43:00 EDT, Weight Dosing Start Date: 11/07/22 Stop Date: 02/05/23 Status: Ordered gabapentin 300 mg oral capsule 300 mg = 1 cap, Oral, every night at bedtime, 28 cap, # 30 cap, 2 Refill(s), Pharmacy: [place] [facility] [id number], 163, cm, 07/01/22 17:43:00 EDT, Height/Length Dosing, 126, kg, 07/01/22 17:43:00 EDT, Weight Dosing Start Date: 10/07/22 Status: Ordered hydroCHLOROthiazide 25 mg oral tablet 25 mg = 1 tab, Oral, Daily, 28 tab, 0 Refill(s) Start Date: 03/04/22 Status: Ordered lisinopril 20 mg oral tablet 20 mg = 1 tab, Oral, Daily, # 90 tab, 3 Refill(s), Pharmacy: [facility] Start Date: 04/01/22 Stop Date: 03/27/23 Status: Ordered loratadine 10 mg oral tablet 10 mg = 1 tab, Oral, Daily, # 90 tab, 3 Refill(s), Pharmacy: [facility] Start Date: 04/01/22 Stop Date: 03/27/23 Status: Ordered LORazepam 1 mg oral tablet 1 mg = 1 tab, Oral, BID, # 14 tab, 1 Refill(s), Pharmacy: [facility], 163, cm, 07/01/22 17:43:00 EDT, Height/Length Dosing, 126, kg, 07/01/22 17:43:00 EDT, Weight Dosing Start Date: 11/07/22 Stop Date: 11/21/22 Status: Ordered omeprazole 40 mg oral delayed release capsule 40 mg = 1 cap, Oral, Daily, # 90 cap, 3 Refill(s), Pharmacy: [facility] Start Date: 04/01/22 Stop Date: 03/27/23 Status: [...] tab, 2 Refill(s), Pharmacy: [facility], 163, cm, 07/01/22 17:43:00 EDT, Height/Length Dosing, 126, kg, 07/01/22 17:43:00 EDT, Weight Dosing Start Date: 11/07/22 Stop Date: 02/05/23 Status: Ordered Vitamin B6 100 mg oral tablet 100 mg = 1 tab, Oral, TID w/ Meals, for 30 days, # 90 tab, 2 Refill(s), Pharmacy: [facility], 163, cm, 07/01/22 17:43:00 EDT, Height/Length Dosing, 126, kg, 07/01/22 17:43:00 EDT, Weight Dosing Start Date: 11/07/22 Stop Date: 02/05/23 Status: Ordered Vitamin D3 2000 intl units oral capsule 2 caps, Oral, Daily, # 180 cap, 3 Refill(s), Pharmacy: [facility] Start Date: 03/05/22 Stop Date: 02/28/23 Status: Ordered Wellbutrin XL 150 mg/24 hours oral tablet, extended release 150 mg = 1 tab, Oral, every morning, for 30 days, # 30 tab, 2 Refill(s), Pharmacy: [facility], 163, cm, 07/01/22 17:43:00 EDT, Height/Length Dosing, [...] 2023 in December. Neg. 2For inevitable SAB Results Laboratory List Name Date Drug Screen Urine (Drug Screen Urine w/ Reflex) 11/07/22 Most recent to oldest [Reference Range]: 1 U Amph Scrn [Negative] Negative (11/07/22 1:38 PM) U Benzodia Scrn [Negative] Positive *ABN* (11/07/22 1:38 PM) U Cocaine Scrn [Negative] Negative (11/07/22 1:38 PM) U Zulay Scrn [Negative] Negative (11/07/22 1:38 PM) U Opiate Scrn [Negative] Negative (11/07/22 1:38 PM) U Oxy Scrn [Negative] Negative (11/07/22 1:38 PM) U PCP Scrn [Negative] Negative (11/07/22 1:38 PM) U THC Scr [Negative] Negative (11/07/22 1:38 PM) U PPX Scr [Negative] Negative (11/07/22 1:38 PM) U Methadone Scr [Negative] Negative (11/07/22 1:38 PM) U Buprenorph Scr [Negative] Negative (11/07/22 1:38 PM) U mAMP Scr [Negative] Negative (11/07/22 1:38 PM) U TCA Scr [Negative] Negative (11/07/22 1:38 PM) Social History Social History Type Response Tobacco Current everyday tob acco user Tobacco Use:. 1 PPD per day. Sex Female Patient Care team information Personnel Name: Mari Diggs Address: Address: [facility] [id number] [place] [address]
--- OUTSIDE RECORDS SUMMARY | 2023-08-18 11:09 | XMS_ITS | Continuity of Care Document ---
Author Name Unknown Organization [facility] Address [address] [place] [address] Care Team Providers Care Uniform Maker Name Role Phone Mari Diggs Primary Care Physician [id number] Date(s): 05/11/23 - 05/11/[address] [address] Discharge Disposition: Home or Self Care Attending Physician: Dixie Vega NP Admitting Physician: Dixie Vega NP Referring Physician: Dixie Vega PRODUCT TECHNICIAN Allergies, Adverse Reactions, Alerts Substance Reaction Severity Status GRAPEFRUIT Unknown Active penicillins Urticaria Unknown Active sulfa drugs Swollen face Unknown Active Cilantro Unknown Active Assessment and Plan Future Appointments Diagnostic Tests Pending * Calprotectin, Feces [place] 05/11/23 * Lactoferrin, Fecal by DOLLY EVANSTON 05/11/23 Future Scheduled Tests Laboratory* Comprehensive Metabolic Panel 02/05/23 * Sedimentation Rate (ESR) 05/08/23 * C-Reactive Protein High Sensitivity 05/08/23 * Hemoglobin A1c 12/26/22 * Hemoglobin A1c [...] Recorded 1Result Comment: pt tolerated well Medications [facility] Prescription 1 strip, 100 EA, USE 1 STRIP TO CHECK GLUCOSE ONCE DAILY, # 100 strip, 0 Refill(s) Start Date: 03/04/22 Status: Ordered gabapentin 300 mg oral capsule 300 mg = 1 cap, Oral, every night at bedtime, 28 cap, # 30 cap, 2 Refill(s), Pharmacy: [facility], 157.48, cm, 03/17/23 11:59:00 EDT, Height/Length Dosing, 127.46, kg, 03/17/23 11:59:00EDT, Weight Dosing Start Date: 04/28/23 Status: Ordered hydroCHLOROthiazide 25 mg oral tablet 25 mg = 1 tab, Oral, Daily, # 90 tab, 0 Refill(s), Pharmacy: [facility], 157.48, cm, 03/17/23 11:59:00 EDT, Height/Length Dosing, 127.46, kg, 03/17/23 11:59:00 EDT, Weight Dosing Start Date: 03/30/23 Status: Ordered lisinopril 20 mg oral tablet 20 mg = 1 tab, Oral, Daily, # 90 tab, 0 Refill(s), Pharmacy: [facility], 157.48, cm, 03/17/23 11:59:00 EDT, Height/Length Dosing, 127.46, kg, 03/17/23 11:59:00 EDT, Weight Dosing Start Date: 03/30/23 Stop Date: 06/28/23 Status: Ordered loratadine 10 mg oral tablet 10 mg = 1 tab, Oral, Daily, # 90 tab, 0 Refill(s), Pharmacy: [facility], 157.48, cm, 03/17/23 11:59:00 EDT, Height/Length Dosing, 127.46, kg, 03/17/23 11:59:00 EDT, Weight Dosing Start Date: 03/30/23 Status: Ordered LORazepam 0.5 mg oral tablet 0.5 mg = 1 tab, Oral, TID, # 84 tab, 2 Refill(s), Pharmacy: [facility], 163, cm, 07/01/22 17:43:00 EDT, Height/Length Dosing, 126, kg, 07/01/22 17:43:00 EDT, Weight Dosing Start Date: 02/06/23 Stop Date: 05/01/23 Status: Ordered magnesium gluconate 500 mg oral tablet 500 mg = 1 tab, Oral, Daily, if not avail, may subsitute with magnesium gluconate 250mg tab 2 tabs daily, 180 tabs x 3 refills, # 30 tab, 11 Refill(s), Pharmacy: [facility], 163, cm, 07/01/22 17:43:00 EDT, Height/Length Dosing, 126, kg,... Start Date: 03/09/23 Stop Date: 02/21/26 Status: Ordered omeprazole 40 mg oral delayed release capsule 40 mg = 1 cap, Oral, Daily, # 90 cap, 0 Refill(s), Pharmacy: [facility], 157.48, cm, 03/17/23 11:59:00 EDT, Height/Length Dosing, 127.46, kg, 03/17/23 11:59:00 EDT, Weight Dosing Start Date: 03/30/23 Stop Date: 06/28/23 Status: Ordered ONETOUCH DELICA CHRISTIE 33G MIS ONETOUCH DELICA CHRISTIE 33G MIS, use as directed to teest blood sugar once daily Start Date: 05/12/22 Status: Ordered ONETOUCH ULTRA 2 KIT ONETOUCH ULTRA 2 KIT, use as diredcted to check glucose once daily, 0 Refill(s) Start Date: 05/12/22 Status: Ordered Rexulti 1 mg oral tablet 1 mg = 1 tab, Oral, Daily, # 30 tab, 2 Refill(s), Pharmacy: [facility], 157.48, cm, 03/17/23 11:59:00 EDT, Height/Length Dosing, 127.46, kg, 03/17/23 11:59:00 EDT, Weight Dosing Start Date: 04/10/23 Stop Date: 07/09/23 Status: Ordered SEROquel 50 mg oral tablet 50 mg = 1 tab, Oral, every night at bedtime, # 30 tab, 0 Refill(s), Pharmacy: [facility], 157.48, cm, 03/17/23 11:59:00 EDT, Height/Length Dosing, 127.46, kg, 03/17/23 11:59:00 EDT, Weight Dosing Start Date: 04/29/23 Stop Date: 05/29/23 Status: Ordered Trulicity Pen 0.75 mg/0.5 mL subcutaneous solution 0.75 mg = 0.5 mL, Subcutaneous, every week, rotate injection sites, # 2.5 mL, 11 Refill(s), Pharmacy: [facility], 163, cm, 07/01/22 17:43:00 EDT, Height/Length Dosing, 126, kg, 07/01/2217:43:00 EDT, Weight Dosing Start Date: 02/05/23 Stop Date: 01/31/24 Status: Ordered Vitamin B6 100 mg oral tablet 100 mg = 1 tab, Oral, TID w/ Meals, for 30 days, # 90 tab, 2 Refill(s), Pharmacy: [facility], 157.48, cm, 03/17/23 11:59:00 EDT, Height/Length Dosing, 127.46, kg, 03/17/23 11:59:00 EDT,Weight Dosing Start Date: 04/10/23 Stop Date: 07/09/23 Status: Ordered Vitamin D3 2000 intl units oral capsule 2 caps, Oral, Daily, # 180 cap, 3 Refill(s), Pharmacy: [facility], 163, cm, 07/01/22 17:43:00 EDT, Height/Length Dosing, 126, kg, 07/01/22 17:43:00 EDT, Weight Dosing Start Date: 03/09/23 Stop Date: 03/03/24 Status: Ordered Wellbutrin XL 150 mg/24 hours oral tablet, extended release 150 mg = 1 tab, Oral, every morning, for 30 days, # 30 tab, 2 Refill(s), [facility], cm, 07/01/22 17:43:00 EDT, Height/Length Dosing, 126, kg, 07/01/22 17:43:00 EDT, Weight Dosing Start Date: 03/03/23 Stop Date: 8/14/23 Status: Ordered Problem List Condition Confirmation Course [...] Confirmed Active Posttraumatic stress disorder Confirmed Active Rectal bleed Confirmed Active Restless legs syndrome Confirmed Active Recurrent major depression-severe Confirmed Active Suicidal ideation Confirmed Active Tremor Confirmed 06/14/21 Active Trigeminal [...] inevitable SAB Results Laboratory List Name Date Occult Blood Diagnostic, Feces 05/11/23 Most recent to oldest [Reference Range]: 1 Occult Bld Stl I Negative (05/11/23 10:40 AM) Occult Bld Stl ll N/A (05/11/23 10:40 AM) Occult Bld Stl lll N/A (05/11/23 10:40 AM) Social History Social History Type Response Tobacco Current everyday tob acco user Tobacco Use:. 1 PPD per day. Sex Female Patient Care team information Care Team Personnel Name: Mari Diggs Position: Physician Member Role: Informed Provider Address: Address: [facility] [phone] [place] [address] Name: Rl Harmon [address] Position: Dietitian Member Role: Felt Cutter Care Team Related Persons Name: MAGY STEVE Address: Home [address] [phone]
--- OUTSIDE RECORDS SUMMARY | 2023-08-18 11:09 | XMS_ITS | Continuity of Care Document ---
Author Name Unknown Organization [facility] Address [address] [place] [address] Care Team Providers Care Dental Surgery Doctor Name Role Phone Mari Diggs Primary Care Physician [phone] Encounter ON LICENSE OF [facility] [id number] Date(s): 07/21/23 - 07/21/[address] [phone] [place] Encounter Diagnosis Allergic reaction(Discharge Diagnosis) - 07/21/23 Discharge Disposition: Home or Self Care Attending Physician: Yosef Shepard MD Admitting Physician: Yosef Shepard MD Allergies, Adverse Reactions, Alerts Substance Reaction Severity Status GRAPEFRUIT Unknown Active penicillins Urticaria Unknown Active sulfa drugs Swollen face Unknown Active Cilantro Unknown Active Assessment and Plan Future Appointments Future Scheduled Tests Laboratory* CBC w/ Diff 06/25/23 * Comprehensive Metabolic Panel 02/05/23 * Comprehensive Metabolic Panel 06/25/23 * Sedimentation Rate (ESR) 05/08/23 * C-Reactive Protein High Sensitivity 05/08/23 * Hemoglobin A1c 12/26/22 * Hemoglobin A1c 02/05/23 * Hemoglobin A1c 06/25/23 Functional Status 07/21/23 Recent Travel History No recent travel Other exposure to Infectious Disease Non e Immunizations Given and Recorded Vaccine Date Status [...] Recorded 1Result Comment: pt tolerated well Medications [facility] Prescription 1 strip, 100 EA, USE 1 STRIP TO CHECK GLUCOSE ONCE DAILY, # 100 strip, 0 Refill(s) Start Date: 03/04/22 Status: Ordered gabapentin 300 mg oral capsule 300 mg = 1 cap, Oral, every night at bedtime, 28 cap, # 30 cap, 2 Refill(s), [facility], [facility], 03/17/23 11:59:00 EDT, Height/Length Dosing, 127.46, kg, 03/17/23 11:59:00EDT, Weight Dosing Start Date: 04/28/23 Status: Ordered hydroCHLOROthiazide 25 mg oral tablet 25 mg = 1 tab, Oral, Daily, # 90 tab, 3 Refill(s), [facility], cm, 03/17/23 11:59:00 EDT, Height/Length Dosing, 127.46, kg, 03/17/23 11:59:00 EDT, Weight Dosing Start Date: 06/25/23 Status: Ordered hydrOXYzine hydrochloride 50 mg oral tablet 50 mg = 1 tab, Oral, TID, PRN as needed for itching, # 25 tab, 0 Refill(s), 08/07/23 8:59:00 PM CDT, [facility], [facility], cm, 07/21/23 20:31:00 EDT, Height/Length Dosing, 134.5, kg, 07/21/23 20:31:00 EDT, Weight Dosing Start Date: 07/21/23 Stop Date: 08/07/23 Status: Ordered lisinopril 20 mg oral tablet 20 mg = 1 tab, Oral, Daily, # 90 tab, 3 Refill(s), [facility], [facility], cm, 03/17/23 11:59:00 EDT, Height/Length Dosing, 127.46, kg, 03/17/23 11:59:00 EDT, Weight Dosing Start Date: 06/25/23 Stop Date: 06/19/24 Status: Ordered loratadine 10 mg oral tablet 10 mg = 1 tab, Oral, Daily, # 90 tab, 3 Refill(s), Pharmacy: [facility], 157.48, cm, 03/17/23 11:59:00 EDT, Height/Length Dosing, 127.46, kg, 03/17/23 11:59:00 EDT, Weight Dosing Start Date: 06/25/23 Status: Ordered LORazepam 1 mg oral tablet 1 mg = 1 tab, Oral, TID, # 84 tab, 1 Refill(s), [facility], 157.48, cm, 03/17/23 11:59:00 EDT, Height/Length Dosing, 127.46, kg, 03/17/23 11:59:00 EDT, Weight Dosing Start Date: 06/17/23 Stop Date: 08/12/23 Status: Ordered magnesium gluconate 500 mg oral tablet 500 mg = 1 tab, Oral, Daily, if not avail, may subsitute with magnesium gluconate 250mg tab 2 tabs daily, 180 tabs x 3 refills, # 30 tab, 11 Refill(s), Pharmacy: [facility], 163, cm, 07/01/22 17:43:00 EDT, Height/Length Dosing, 126, kg, 07/01/22 17:43:00 EDT, Weight Dosing Start Date: 03/09/23 Stop Date: 02/21/26 Status: Ordered metFORMIN 500 mg oral tablet 500 mg = 1 tab, Oral, BID, # 180 tab, 3 Refill(s), [facility], 157.48, cm, 03/17/23 11:59:00 EDT, Height/Length Dosing, 127.46, kg, 03/17/23 11:59:00 EDT, Weight Dosing Start Date: 06/25/23 Stop Date: 06/19/24 Status: Ordered MiraLax oral powder for reconstitution 17 g, Oral, Daily, # 238 g, 1 Refill(s), Pharmacy: [facility], 157.48, cm, 03/17/23 11:59:00 EDT, Height/Length Dosing, 127.46, kg, 03/17/23 11:59:00 EDT, Weight Dosing Start Date: 06/25/23 Status: Ordered omeprazole 40 mg oral delayed release capsule 40 mg = 1 cap, Oral, Daily, # 90 cap, 3 Refill(s), Pharmacy: [facility], 157.48, cm, 03/17/23 11:59:00 EDT, Height/Length Dosing, 127.46, kg, 03/17/23 11:59:00 EDT, Weight Dosing Start Date: 06/25/23 Stop Date: 06/19/24 Status: Ordered ondansetron 4 mg oral tablet 4 mg = 1 tab, Oral, every 12 hr, # 10 tab, 0 Refill(s), [facility],cm, 03/17/23 11:59:00 EDT, Height/Length Dosing, 127.46, kg, 03/17/23 11:59:00 EDT, Weight Dosing Start Date: 06/15/23 Status: Ordered ONETOUCH DELICA CHRISTIE 33G MIS ONETOUCH DELICA CHRISTIE 33G MIS, use as directed to teest blood sugar once daily Start Date: 05/12/22 Status: Ordered ONETOUCH ULTRA 2 KIT ONETOUCH ULTRA 2 KIT, use as diredcted to check glucose once daily, 0 Refill(s) Start Date: 05/12/22 Status: Ordered predniSONE 20 mg oral tablet 40 mg = 2 tab, Oral, Daily, X 4 days, # 8 tab, 0 Refill(s), 07/25/23 8:58:00 PM CDT, [facility], [facility], 07/21/23 20:31:00 EDT, Height/Length Dosing, 134.5, kg, 07/21/23 20:31:00 EDT, Weight Dosing Start Date: 07/21/23 Stop Date: 07/25/23 Status: Ordered Rexulti 1 mg oral tablet 1 mg = 1 tab, Oral, Daily, # 30 tab, 2 Refill(s), Pharmacy: [facility], 157.48, cm, 03/17/23 11:59:00 EDT, Height/Length Dosing, 127.46, kg, 03/17/23 11:59:00 EDT, Weight Dosing Start Date: 06/17/23 Stop Date: 09/15/23 Status: Ordered Seroquel 50 mg oral tablet 50 mg = 1 tab, Oral, every night at bedtime, Please place in blister pack to help client with compliance., # 30 tab, 2 Refill(s), [facility], 157.48, cm, 03/17/23 11:59:00 EDT, Height/Length Dosing, 127.46, kg, 03/17/23 11:59:00 EDT, Weight Dosing Start Date: 06/17/23 Stop Date: 09/15/23 Status: Ordered Vitamin B6 100 mg oral tablet 100 mg = 1 tab, Oral, TID w/ Meals, for 30 days, # 90 tab, 2 Refill(s), [facility], 157.48, cm, 03/17/23 11:59:00 EDT, Height/Length Dosing, 127.46, kg, 03/17/23 11:59:00 EDT,Weight Dosing Start Date: 06/17/23 Stop Date: 09/15/23 Status: Ordered Vitamin D3 2000 intl units oral capsule 2 caps, Oral, Daily, # 180 cap, 3 Refill(s), [facility], 163, cm, 07/01/22 17:43:00 EDT, Height/Length Dosing, 126, kg, 07/01/22 17:43:00 EDT, Weight Dosing Start Date: 03/09/23 Stop Date: 03/03/24 Status: Ordered Wellbutrin XL 300 mg/24 hours oral tablet, extended release 300 mg = 1 tab, Oral, Daily, Please d/c wellburin XL 150 mg and any refills for it., # 30 tab, 2 Refill(s), [facility], 157.[facility], cm, 03/17/23 11:59:00 EDT, Height/Length Dosing, 127.46, kg, 03/17/23 11:59:00 EDT, Weight Dosing Start Date: 07/17/23 Stop Date: 10/15/23 Status: Ordered Mental Status 07/21/23 Eye Opening Response Sarah Spontaneous ly Best Verbal Response Kaplan Oriented Best Motor Response Kaplan Obeys comman ds Sarah Coma Score 15 Problem List Condition Confirmation Course Effective Dates Status H ealth Status Informant Left breast mass Confirmed Active Chronic constipation [...] Confirmed Active Restless legs syndrome Confirmed Active Suicidal ideation Confirmed Active Tremor [...] 2023 in December. Neg. 2For inevitable SAB Vital Signs Most recent to oldest [Reference Range]: 1 Temperature Temporal Artery [36-38 Deg C ] 36.6 Deg C (07/21/23 8:18 PM) Peripheral Pulse Rate [60-100 bpm] 88 bp m (07/21/23 8:18 PM) Respiratory Rate [12-24 br/min] 18 br/mi n (07/21/23 8:18 PM) Blood Pressure [90-140/60-90 mmHg] 159/1 16mmHg *HI* (07/21/23 8:18 PM) Weight Dosing 134.50 kg (07/21/23 8:31 PM) Weight Estimated 134.50 kg (07/21/23 8:18 PM) Height/Length Dosing 157.000 cm (07/21/23 8:31 PM) Height/Length Estimated 157.000 cm (07/21/23 8:18 PM) Social History Social History Type Response Tobacco Current everyday tob acco user Tobacco Use:. 1 PPD per day. Sex Female Hospital Discharge Instructions Patient Education 07/21/2023 21:00:24 Allergies, Adult Allergies, Adult An allergy is a condition in which the body's defense system (immune system) comes in contact with an allergen and reacts to it. An allergen is anything that causes an allergic reaction. Allergens cause the immune system to make proteins for fighting infections (antibodies). These antibodies cause cells to release chemicals called histamines that set off the symptoms of an allergic reaction. Allergies often affect the nasal passages (allergic rhinitis), eyes (allergic conjunctivitis), skin(atopic dermatitis), and stomach. Allergies can be mild, moderate, or severe. They cannot spread from person to person. Allergies can develop at any age and may be outgrown. What are the causes? This condition is caused by allergens. Common allergens include: ??? Outdoor allergens, such as pollen, car fumes, and mold. ??? Indoor allergens, such as dust, smoke, mold, and pet dander. ??? Other allergens, such as foods, medicines, scents, insect bites or stings, and other skin irritants. What increases the risk? You are more likely to develop this condition if you have: ??? Family members with allergies. ??? Family members who have any condition that may be caused by allergens, such as asthma. This maymake you more likely to have other allergies. What are the signs or symptoms? Symptoms of this condition depend on the severity of the allergy. Mild to moderate symptoms ??? Runny nose, stuffy nose (nasal congestion), or sneezing. ??? Itchy mouth, ears, or throat. ??? A feeling of mucus dripping down the back of your throat (postnasal drip). ??? Sore throat. ??? Itchy, red, watery, or puffy eyes. ??? Skin rash, or itchy, red, swollen areas of skin (hives). ??? Stomach cramps or bloating. Severe symptoms Severe allergies to food, medicine, or insect bites may cause anaphylaxis, which can be life-threatening. Symptoms include: ??? A red (flushed) face. ??? Wheezing or coughing. ??? Swollen lips, tongue, or mouth. ??? Tight or swollen throat. ??? Chest pain or tightness, or rapid heartbeat. ??? Trouble breathing or shortness of breath. ??? Pain in the abdomen, vomiting, or diarrhea. ??? Dizziness or fainting. How is this diagnosed? This condition is diagnosed based on your symptoms, your family and medical history, and a physicalexam. You may also have tests, including: ??? Skin tests to see how your skin reacts to allergens that may be causing your symptoms. Tests include: ??? Skin prick test. For this test, an allergen is introduced to your body through a small opening in the skin. ??? Intradermal skin test. For this test, a small amount of allergen is injected under the first layer of your skin. ??? Patch test. For this test, a small amount of allergen is placed on your skin. The area is covered and then checked after a few days. ??? Blood tests. ??? A challenge test. For this test, you will eat or breathe in a small amount of allergen to see if you have an allergic reaction. You may also be asked to: ??? Keep a food diary. This is a record of all the foods, drinks, and symptoms you have in a day. ??? Try an elimination diet. To do this: ??? Remove certain foods from your diet. ??? Add those foods back one by one to find out if any foods cause an allergic reaction. How is this treated? Treatment for allergies depends on your symptoms. Treatment may include: ??? Cold, wet cloths (cold compresses) to soothe itching and swelling. ??? Eye drops or nasal sprays. ??? Nasal irrigation to help clear your mucus or keep the nasal passages moist. ??? A humidifier to add moisture to the air. ??? Skin creams to treat rashes or itching. ??? Oral antihistamines or other medicines to block the reaction or to treat inflammation. ??? Diet changes to remove foods that cause allergies. ??? Being exposed again and again to tiny amounts of allergens to help you build a defense against it (tolerance). This is called immunotherapy. Examples include: ??? Allergy shot. You receive an injection that contains an allergen. ??? Sublingual immunotherapy. You take a small dose of allergen under your tongue. ??? Emergency injection for anaphylaxis. You give yourself a shot using a syringe (auto-injector) that contains the amount of medicine you need. Your health care provider will teach you how to give yourself an injection. Follow these instructions at home: Medicines ??? Take or apply ylxm-lcm-tdbkrcc and prescription medicines only as told by your health care provider. ??? Always carry your auto-injector pen if you are at risk of anaphylaxis. Give yourself an injection as told by your health care provider. Eating and drinking ??? Follow instructions from your health care provider about eating or drinking restrictions. ??? Drink enough fluid to keep your urine pale yellow. General instructions ??? Wear a medical alert bracelet or necklace to let others know that you have had anaphylaxis before. ??? Avoid known allergens whenever possible. ??? Keep all follow-up visits as told by your health care provider. This is important. Contact a health care provider if: ??? Your symptoms do not get better with treatment. Get help right away if: ??? You have symptoms of anaphylaxis. These include: ??? Swollen mouth, tongue, or throat. ??? Pain or tightness in your chest. ??? Trouble breathing or shortness of breath. ??? Dizziness or fainting. ??? Severe abdominal pain, vomiting, or diarrhea. These symptoms may represent a serious problem that is an emergency. Do not wait to see if the symptoms will go away. Get medical help right away. Call your local emergency services (911 in the [place] Do not drive yourself to the hospital. Summary ??? Take or apply feyl-lww-aaukwsj and prescription medicines only as told by your health care provider. ??? Avoid known allergens when possible. ??? Always carry your auto-injector pen if you are at risk of anaphylaxis. Give yourself an injection as told by your health care provider. ??? Wear a medical alert bracelet or necklace to let others know that you have had anaphylaxis before. ??? Anaphylaxis is a life-threatening emergency. Get help right away. This information is not intended to replace advice given to you by your health care provider. Make sure you discuss any questions you have with your health care provider. Document Revised: 06/03/2021 Document Reviewed: 08/15/2020 [email or web address] Patient Education ?? 2022 [employer]. Follow Up Care 07/21/2023 20:17:56 With:Mari Diggs Address: [facility] [address] [address]- When:1 month Physician Emergency department Note * Yosef Shepard MD: PERFORM Event Display: ED Note Physician Authored Date: [id number] ZURDO JEONG :1985 Age:38 years Sex:Female Visit Date:07/21/2023 Primary Care Physician: Mari Diggs Basic Information Time Seen: Yosef Shepard MD / 07/21/2023 21:25 Chief Complaint Pt states face burning, itching and red since 08. Pt states her lips and eye lids feel tingly. Last benadryl taken at 1300. Pt denies using new products or new foods History Of Present Illness: 38-year-old female presents with swelling and itchiness to her bilateral face and forehead??and around the lips feeling tingly??ever since this morning, has taken Benadryl several times without much relief still has itchiness,??not outright significant pain but more describing a burning itching feeling around??the face. ??Denies any new soaps or detergents or new medications, has not come into contact with any of her??medications that she is allergic to or using new products or any new types offoods.?? No significant shortness of breath chest pain??abdominal pain vomiting or any other symptoms. Review of Systems: Facial swelling,??pruritus, rash Physical Exam Vitals & Measurements T:??36.6?C ??(Temporal Artery)?? HR:??88??(Peripheral)?? RR:??18?? BP:??159/116?? SpO2:??98%?? HT:??157.000??cm?? WT:??134.50??kg??(Estimated)?? Pain Score:??8?? O2 Therapy:??Room air?? General: Alert and oriented, well nourished,?No??acute distress Eye: PERRL, EOMI,?Normal?conjunctiva HENT: Normocephalic, posterior pharynx unremarkable no significant swelling, no edema to the floor of the mouth, there is some??minimal maculopapular rash??and minimal swelling if any to bilateral maxillary region and into the forehead Lungs: Clear to auscultation and percussion,??good auscultation bilaterally no respiratory distress, no stridor Heart:?Normal? rate,?Regular??rhythm Psychiatric: Cooperative, appropriate mood and affect Medical Decision Makin-year-old female presents with facial swelling bilaterally and a burning sensation and pruritus to the area that started this morning.?? Vitals are normal??with the exception of slightly elevated blood pressure 159/116. ??Patient in no acute distress clinically. ??No edema to the posterior orophar ynx or floor the mouth. ??No stridor on auscultation, lungs are clear to auscultation bilaterally. ??No acute respiratory distress or other distress.?? She does have??minimal??maculopapular erythematous rash to bilateral maxillary region up into the forehead with some minimal, if any, swelling.?? Most likely allergic reaction??to??something in the environment, unknown etiology. ??Recommended cleaning her CPAP mask as??her rashes and??somewhat of a masklike distribution.?? Given famotidine and prednisone, also given hydroxyzine as needed for itching??with a prescription for prednisone.?? Appropriate for discharge home and primary care follow-up given strict return precautions ED to come backwith any worsening symptoms. Procedure No Qualifying Data Assessment/Plan 1.??Allergic reaction??T78.40XA Ordered: hydrOXYzine hydrochloride 50 mg oral tablet, 50 mg = 1 tab, Oral, TID, PRN as needed for itching, #25 tab, 0 Refill(s), 08/07/23 21:59:00 EDT, Pharmacy: [facility], 157, cm, 07/21/23 20:31:00 EDT, Height/Length Dosing, 134.5, kg, 07/21/23 20:31:00 EDT, Weight Dosing predniSONE 20 mg oral tablet, 40 mg = 2 tab, Oral, Daily, X 4 days, # 8 tab, 0 Refill(s), 07/25/23 21:58:00 EDT, Pharmacy: [facility], 157, cm, 07/21/23 20:31:00 EDT, Height/Length Dosing, 134.5, kg, 07/21/23 20:31:00 EDT, Weight Dosing Discharge Patient, 07/21/23 21:58:00 EDT, Home Independently, Constant Indicator ED Visit Follow [facility] [place], Orders for future visit, 07/21/23 22:00:00 EDT, Allergic reaction ?? Orders: famotidine, 20 mg = 1 tab, Oral, Tab, Once, First Dose: 07/21/23 21:54:00 EDT, Stop Date: 07/21/23 21:54:00 EDT, Physician Stop, STAT hydrOXYzine, 50 mg = 2 tab, Oral, Tab, Once, First Dose: 07/21/23 21:54:00 EDT, Stop Date: 07/21/2321:54:00 EDT, Physician Stop, STAT predniSONE, 40 mg = 2 tab, Oral, Tab, Once, First Dose: 07/21/23 21:55:00 EDT, Stop Date: 07/21/23 21:55:00 EDT, Physician Stop, STAT Patient Education Allergies, Adult Follow Up With When Contact Information Mari Diggs Within 1 month [facility] [address] [address]- Additional Instructions: Medication Reconciliation New Prescription hydrOXYzine (hydrOXYzine hydrochloride 50 mg oral tablet)1 tab Oral (given by mouth) 3 times a day as needed as needed for itching. Refills: 0. ?? predniSONE (predniSONE 20 mg oral tablet)2 tab Oral (given by mouth) every day for 4 Days. Refills:0. ?? Unchanged brexpiprazole (Rexulti 1 mg oral tablet)1 tab Oral (given by mouth) every day for 30 Days. Refills:2. ?? buPROPion (Wellbutrin XL 300 mg/24 hours oral tablet, extended release)1 tab Oral (given by mouth) every day for 30 Days. Please d/c wellburin XL 150 mg and any refills for it.. Refills: 2. ?? cholecalciferol (Vitamin D3 2000 intl units oral capsule)2 caps Oral (given by mouth) every day for90 Days. Refills: 3. ?? gabapentin (gabapentin 300 mg oral capsule)1 Capsules Oral (given by mouth) every night at bedtime.28 cap. Refills: 2. ?? hydroCHLOROthiazide (hydroCHLOROthiazide 25 mg oral tablet)1 tab Oral (given by mouth) every day. Refills: 3. ?? lisinopril (lisinopril 20 mg oral tablet)1 tab Oral (given by mouth) every day for 90 Days. Refills: 3. ?? loratadine (loratadine 10 mg oral tablet)1 tab Oral (given by mouth) every day. Refills: 3. ?? LORazepam (LORazepam 1 mg oral tablet)1 tab Oral (given by mouth) 3 times a day for 28 Days. Refills: 1. ?? magnesium gluconate (magnesium gluconate 500 mg oral tablet)1 tab Oral (given by mouth) every day for 90 Days. if not avail, may subsitute with magnesium gluconate 250mg tab 2 tabs daily, 180 tabs x 3 refills. Refills: 11. ?? metFORMIN (metFORMIN 500 mg oral tablet)1 tab Oral (given by mouth) 2 times a day for 90 Days. Refills: 3. ?? omeprazole (omeprazole 40 mg oral delayed release capsule)1 Capsules Oral (given by mouth) every day for 90 Days. Refills: 3. ?? ondansetron (ondansetron 4 mg oral tablet)1 tab Oral (given by mouth) every 12 hours. Refills: 0. ?? Other Prescription ([facility] [place]1 strip. 100 EA, USE 1 STRIP TO CHECK GLUCOSE ONCE DAILY. ?? Other Prescription (ONETOUCH DELICA CHRISTIE 33G MIS)use as directed to teest blood sugar once daily. ?? Other Prescription (Pro 3 GamesTOUCH ULTRA 2 KIT)use as diredcted to check glucose once daily. ?? polyethylene glycol 3350 (MiraLax oral powder for reconstitution)17 Gram Oral (given by mouth) every day. Refills: 1. ?? pyridoxine (Vitamin B6 100 mg oral tablet)1 tab Oral (given by mouth) 3 times a day (with meals) for 30 Days. for 30 days. Refills: 2. ?? QUEtiapine (Seroquel 50 mg oral tablet)1 tab Oral (given by mouth) every night at bedtime for [address] in blister pack to help client with compliance.. Refills: 2. Problem List/Past Medical History Ongoing Chronic constipation DM2 (diabetes mellitus, type 2) Fatigue Hypertensive disorder Left breast mass Leukocytosis Medication management Mixed hyperlipidemia Morbid obesity Nightmares associated with chronic post-traumatic stress disorder Obstructive sleep apnea Panic disorder without agoraphobia Polycystic ovaries Posttraumatic stress disorder Rectal bleed Restless legs syndrome Suicidal ideation Tremor Trigeminal neuralgia Vitamin D deficiency Historical Anxiety disorder Asthma Insomnia Moderately severe recurrent major depression Post-traumatic stress disorder, chronic Recurrent major depression-severe Procedure/Surgical History ???TLH, DAVE, lap. [facility] (05/16/2020)???PAP smear preparation (01/11/2019)???Laparoscopic bilateral salpingectomy (10/04/2018)???Mammogram - screening (03/08/2015)???Left wrist mass excision (2013)???Dilation and curettage (10/19/2011)???Tonsillectomy and adenoidectomy (10/19/1996)???Fatty tumor removal Allergies Cilantro GRAPEFRUIT penicillins??(Urticaria) sulfa drugs??(Swollen face) Social History Alcohol Current, 1-2 times per year- Comments: rare use Electronic Cigarette/Vaping Electronic Cigarette Use: Former use, quit more than 90 days ago. Employment/School Unemployed, Work/School description: Medical leave until Aug-2023. Home/Environment Lives with Significant other, daughter. Nutrition/Health Caffeine intake amount: none. Sleeping concerns: No. Other Psychosocial Substance Use Current, Marijuana- Comments: pt. reports that she trialed mushrooms a few days ago but will not trial again. Tobacco Current everyday tobacco user Tobacco Use:. 1 PPD per day. Family History Cerebrovascular accident: Aunt/Uncle. Chronic obstructive lung disease: Grandmother (M). Diabetes mellitus: Aunt/Uncle, Grandmother (M) and Grandmother (P). Hepatic failure: Grandmother (M). Kidney disease: Grandmother (M). Myocardial infarction: Aunt/Uncle. Sexual abuse: Father. Referral Orders ED Visit Follow Up [facility], [place] for future visit, 07/21/23 22:00:00 EDT, Allergic reaction Electronically Signed on 07/21/23 10:00 PM Yosef Shepard MD Emergency department Discharge instructions * Yosef Shepard MD: PERFORM Event Display: ED Discharge Information Authored Date: [id number] ZURDO JEONG :1985 Age:38 years Sex:Female Visit Date:07/21/2023 Primary Care Physician: Mari Diggs Discharge Instructions We would like to thank you for allowing us to assist you with your healthcare needs. The following includes patient education materials and information regarding your injury/illness. Diagnosis from Today's Visit Allergic reaction Discharge Vitals Temperature??(Temporal Artery) 97.9 ??F (36.6 ??C) Heart Rate??(Peripheral) 88 Respiratory Rate?? 18 Blood Pressure?? 159/116?? Height?? 61.81 in (157.000 cm) Weight??(Estimated) 296.57 lb (134.50 kg) Allergies Cilantro GRAPEFRUIT penicillins??(Urticaria) sulfa drugs??(Swollen face) What to Do Next You Need to Schedule the Following Appointments Follow Up with??Mari Diggs When:??Within 1 month Where: [facility] [address] [address]- Upcoming Scheduled Appointments Thursday 2:15 PM EDT ?? With: Gaby Mac DNP Where: [address] [address] Status: Confirmed Thursday 10:30 AM EDT ?? Where: [facility] Main OR Status: Confirmed Thursday 8:45 AM EDT ?? With: Gaby Mac DNP Where: [address] [address] Status: Confirmed 2022 2:40 PM EST ?? With: Mari Diggs Where: [facility] [address] [address] Status: Confirmed 2023 12:30 PM EDT ?? [facility] Where: [facility] [address] [place] [address] Status: Confirmed You were treated today on an emergency basis; it may be wang to contact your primary care provider to notify them of your visit today. You may have been referred to your regular doctor or a specialist, please follow up as instructed. If your condition worsens or you can't get in to see the doctor, contact the Emergency Department. Medications What How Much When Why Instructions Next Dose New hydrOXYzine (hydrOXYzine hydrochloride 50 mg oraltablet) 1 tab Oral (given by mouth) 3 times a day as needed for as needed for itching Allergic reaction Pickup at [facility] New predniSONE (predniSONE 20 mg oral tablet) 2 tab Oral (given by mouth) Every day Allergic reaction Duration: 4 Days Pickup at [facility] Unchanged brexpiprazole (Rexulti 1 mg oral tablet) 1 tab Oral (given by mouth) Every day Recurrent major depression-severe Duration: 30 Days Unchanged buPROPion (Wellbutrin XL 300 mg/ 24 hours oral tablet, extended release) 1 tab Oral (given by mouth) Every day Duration: 30 Days Please d/ c wellburin XL 150 mg and any refills for it. ?? Unchanged cholecalciferol (Vitamin D3 2000 intl units oral capsule) 2 caps Oral (given by mouth) Every day Vitamin D deficiency Duration: 90 Days Unchanged gabapentin (gabapentin 300 mg oral capsule) 1 Capsules Oral (given by mouth) Every night at bedtime 28 cap ?? Unchanged hydroCHLOROthiazide (hydroCHLOROthiazide 25 mg oral tablet) 1 tab Oral (given by mouth) Every day Unchanged lisinopril (lisinopril 20 mg oral tablet) 1 tab Oral (given by mouth) Every day Hypertensive disorder Duration: 90 Days Unchanged loratadine (loratadine 10 mg oral tablet) 1 tab Oral (given by mouth) Every day Hypertensive disorder Gastroesophageal reflux disease without esophagitis Allergic rhinitis Unchanged LORazepam (LORazepam 1 mg oral tablet) 1 tab Oral (given by mouth) 3 times a day Duration: 28 Days Unchanged magnesium gluconate (magnesium gluconate 500 mg oral tablet) 1 tab Oral (given by mouth) Every day Duration: 90 Days if not avail, may subsitute with magnesium gluconate 250mg tab 2 tabs daily, 180 tabs x 3 refills ?? Unchanged metFORMIN (metFORMIN 500 mg oral tablet) 1 tab Oral (given by mouth) 2 times a day DM2 (diabetes mellitus, type 2) Duration: 90 Days Unchanged omeprazole (omeprazole 40 mg oral delayed release capsule) 1 Capsules Oral (given by mouth) Every day Hypertensive disorder Gastroesophageal reflux disease without esophagitis Duration: 90 Days Unchanged ondansetron (ondansetron 4 mg oral tablet) 1 tab Oral (given by mouth) Every 12 hours N&V (nausea and vomiting) Unchanged Other Prescription ([facility] - Mis Prescription) 1 strip 100 EA, USE 1 STRIP TO CHECK GLUCOSE ONCE DAILY ?? Unchanged Other Prescription (ONETOUCH DELICA CHRISTIE 33G MIS) use as directed to teest blood sugar once daily ?? Unchanged Other Prescription (ONETOUCH ULTRA 2 KIT) use as diredcted to check glucose once daily ?? Unchanged polyethylene glycol 3350 (MiraLax oral powder for reconstitution) 17 Gram Oral (given by mouth) Every day Chronic constipation Unchanged pyridoxine (Vitamin B6 100 mg oral tablet) 1 tab Oral (given by mouth) 3 times a day (with meals) Tremor, unspecified Duration: 30 Days for 30 days ?? Unchanged QUEtiapine (Seroquel 50 mg oral tablet) 1 tab Oral (given by mouth) Every night at bedtime Duration: [address] in blister pack to help client with compliance. ?? [facility] [address] [place], [place] [id number] [phone] Education Materials Allergies, Adult An allergy is a condition in which the body's defense system (immune system) comes in contact with an allergen and reacts to it. An allergen is anything that causes an allergic reaction. Allergens cause the immune system to make proteins for fighting infections (antibodies). These antibodies cause cells to release chemicals called histamines that set off the symptoms of an allergic reaction. Allergies often affect the nasal passages (allergic rhinitis), eyes (allergic conjunctivitis), skin(atopic dermatitis), and stomach. Allergies can be mild, moderate, or severe. They cannot spread from person to person. Allergies can develop at any age and may be outgrown. What are the causes? This condition is caused by allergens. Common allergens include: ? Outdoor allergens, such as pollen, car fumes, and mold. ? Indoor allergens, such as dust, smoke, mold, and pet dander. ? Other allergens, such as foods, medicines, scents, insect bites or stings, and other skin irritants. What increases the risk? You are more likely to develop this condition if you have: ? Family members with allergies. ? Family members who have any condition that may be caused by allergens, such as asthma. This may make you more likely to have other allergies. What are the signs or symptoms? Symptoms of this condition depend on the severity of the allergy. Mild to moderate symptoms ? Runny nose, stuffy nose (nasal congestion), or sneezing. ? Itchy mouth, ears, or throat. ? A feeling of mucus dripping down the back of your throat (postnasal drip). ? Sore throat. ? Itchy, red, watery, or puffy eyes. ? Skin rash, or itchy, red, swollen areas of skin (hives). ? Stomach cramps or bloating. Severe symptoms Severe allergies to food, medicine, or insect bites may cause anaphylaxis, which can be life-threatening. Symptoms include: ? A red (flushed) face. ? Wheezing or coughing. ? Swollen lips, tongue, or mouth. ? Tight or swollen throat. ? Chest pain or tightness, or rapid heartbeat. ? Trouble breathing or shortness of breath. ? Pain in the abdomen, vomiting, or diarrhea. ? Dizziness or fainting. How is this diagnosed? This condition is diagnosed based on your symptoms, your family and medical history, and a physicalexam. You may also have tests, including: ? Skin tests to see how your skin reacts to allergens that may be causing your symptoms. Tests include: ? Skin prick test. For this test, an allergen is introduced to your body through a small opening in the skin. ? Intradermal skin test. For this test, a small amount of allergen is injected under the first layer of your skin. ? Patch test. For this test, a small amount of allergen is placed on your skin. The area is covered and then checked after a few days. ? Blood tests. ? A challenge test. For this test, you will eat or breathe in a small amount of allergen to see if you have an allergic reaction. You may also be asked to: ? Keep a food diary. This is a record of all the foods, drinks, and symptoms you have in a day. ? Try an elimination diet. To do this: ? Remove certain foods from your diet. ? Add those foods back one by one to find out if any foods cause an allergic reaction. How is this treated? Treatment for allergies depends on your symptoms. Treatment may include: ? Cold, wet cloths (cold compresses) to soothe itching and swelling. ? Eye drops or nasal sprays. ? Nasal irrigation to help clear your mucus or keep the nasal passages moist. ? A humidifier to add moisture to the air. ? Skin creams to treat rashes or itching. ? Oral antihistamines or other medicines to block the reaction or to treat inflammation. ? Diet changes to remove foods that cause allergies. ? Being exposed again and again to tiny amounts of allergens to help you build a defense against it (tolerance). This is called immunotherapy. Examples include: ? Allergy shot. You receive an injection that contains an allergen. ? Sublingual immunotherapy. You take a small dose of allergen under your tongue. ? Emergency injection for anaphylaxis. You give yourself a shot using a syringe (auto-injector) that contains the amount of medicine you need. Your health care provider will teach you how to give yourself an injection. Follow these instructions at home: Medicines ? Take or apply gcdz-ysj-qagygza and prescription medicines only as told by your health care provider. ? Always carry your auto-injector pen if you are at risk of anaphylaxis. Give yourself an injection as told by your health care provider. Eating and drinking ? Follow instructions from your health care provider about eating or drinking restrictions. ? Drink enough fluid to keep your urine pale yellow. General instructions ? Wear a medical alert bracelet or necklace to let others know that you have had anaphylaxis before. ? Avoid known allergens whenever possible. ? Keep all follow-up visits as told by your health care provider. This is important. Contact a health care provider if: ? Your symptoms do not get better with treatment. Get help right away if: ? You have symptoms of anaphylaxis. These include: ? Swollen mouth, tongue, or throat. ? Pain or tightness in your chest. ? Trouble breathing or shortness of breath. ? Dizziness or fainting. ? Severe abdominal pain, vomiting, or diarrhea. These symptoms may represent a serious problem that is an emergency. Do not wait to see if the symptoms will go away. Get medical help right away. Call your local emergency services (911 in the [place] Do not drive yourself to the hospital. Summary ? Take or apply vwya-exy-gjqcdqe and prescription medicines only as told by your health care provider. ? Avoid known allergens when possible. ? Always carry your auto-injector pen if you are at risk of anaphylaxis. Give yourself an injection as told by your health care provider. ? Wear a medical alert bracelet or necklace to let others know that you have had anaphylaxis before. ? Anaphylaxis is a life-threatening emergency. Get help right away. This information is not intended to replace advice given to you by your health care provider. Make sure you discuss any questions you have with your health care provider. Document Revised: 06/03/2021 Document Reviewed: 08/15/2020 [employer] Patient Education ?? 2022 [employer] Patient/Exhaust And Muffler Fitter Signature Patient Name:ZURDO JEONG I have received this information and my questions have been answered. Patient/Exhaust And Muffler Fitter Name: Patient/Exhaust And Muffler Fitter Signature: Relationship to Patient: Witness Name/Signature: Date: Electronically Signed on: 07/21/2023 22:00 EDTSigned by:[facility] Note * Chandni Dowling H: PERFORM Event Display: ED Notes Authored Date: [id number] Patient Care team information Care Team Personnel Name: Mari Diggs Position: Physician Member Role: Informed Provider Address: Address: [facility] [address] [address]- [place] Name: Rl [address] Position: Dietitian Member Role: Insurance Representative Name: Ysoef Shepard MD Position: Physician Member Role: ED Physician Address: Address: [facility] [address] [place] [address]- Name: Katie Mckee RN Position: Nurse Member Role: ED Nurse Care Team Related Persons Name: DECLINED, DECLINED
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
--- OUTSIDE RECORDS SUMMARY | 2023-08-18 11:09 | XMS_ITS | Continuity of Care Document ---
Author Name Unknown Organization [facility] Address [address] [place] [address] Care Team Providers Care Sheet Cutter Name Role Phone Mari Diggs Primary Care Physician Encounter [facility] Date(s): 08/16/23 - 08/16/[address] [address] Discharge Disposition: Home or Self Care Attending Physician: Jeffry Mauricio MD Admitting Physician: Jeffry Mauricio MD Allergies, Adverse Reactions, Alerts Substance Reaction [...] 02/05/23 * Hemoglobin A1c 06/25/23 Functional Status 08/16/23 Family Member Travel History No recent t ravel Recent Travel History No recent travel Other [...] Recorded 1Result Comment: pt tolerated well Medications [facility] - Mis Prescription 1 strip, 100 EA, USE 1 STRIP TO CHECK GLUCOSE ONCE DAILY, # 100 strip, 0 Refill(s) Start Date: 03/04/22 Status: Ordered erythromycin 0.5% ophthalmic ointment 1 mathew, Eye-Both, QID, # 3.5 g, 0 Refill(s), [facility], [facility], cm, 07/21/23 20:31:00 EDT, Height/Length Dosing, 134.5, kg, 07/21/23 20:31:00 EDT, Weight Dosing Start Date: 08/13/23 Stop Date: 08/20/23 Status: Ordered gabapentin 300 mg oral capsule 300 mg = 1 cap, Oral, every night at bedtime, 28 cap, # 30 cap, 2 Refill(s), [facility], 157.48, cm, 03/17/23 11:59:00 EDT, Height/Length Dosing, 127.46, kg, 03/17/23 11:59:00EDT, Weight Dosing Start Date: 04/28/23 Status: Ordered hydroCHLOROthiazide 25 mg oral tablet 25 mg = 1 tab, Oral, Daily, # 90 tab, 3 Refill(s), [facility], 157.48, cm, 03/17/23 11:59:00 EDT, Height/Length Dosing, 127.46, kg, 03/17/23 11:59:00 EDT, Weight Dosing Start Date: 06/25/23 Status: Ordered lisinopril 20 mg oral tablet 20 mg = 1 tab, Oral, Daily, # 90 tab, 3 Refill(s), [facility], 157.48, cm, 03/17/23 11:59:00 EDT, Height/Length Dosing, 127.46, kg, 03/17/23 11:59:00 EDT, Weight Dosing Start Date: 06/25/23 Stop Date: 06/19/24 Status: Ordered loratadine 10 mg oral tablet 10 mg = 1 tab, Oral, Daily, # 90 tab, 3 Refill(s), [facility], 157.48, cm, 03/17/23 11:59:00 EDT, Height/Length Dosing, 127.46, kg, 03/17/23 11:59:00 EDT, Weight Dosing Start Date: 06/25/23 Status: Ordered LORazepam 1 mg oral tablet 1 mg = 1 tab, Oral, TID, # 84 tab, 1 Refill(s), [facility], 157.48, cm, 03/17/23 11:59:00 EDT, Height/Length Dosing, 127.46, kg, 03/17/23 11:59:00 EDT, Weight Dosing Start Date: 06/17/23 Stop Date: 08/12/23 Status: Ordered magnesium gluconate 500 mg oral tablet 500 mg = 1 tab, Oral, Daily, if not avail, may subsitute with magnesium gluconate 250mg tab 2 tabs daily, 180 tabs x 3 refills, # 30 tab, 11 Refill(s), [facility], 163, cm, 07/01/22 17:43:00 EDT, Height/Length Dosing, 126, kg, 07/01/22 17:43:00 EDT, Weight Dosing Start Date: 03/09/23 Stop Date: 02/21/26 Status: Ordered metFORMIN 500 mg oral tablet 500 mg = 1 tab, Oral, BID, # 180 tab, 3 Refill(s), Pharmacy: [facility], 157.48, cm, 03/17/23 11:59:00 EDT, Height/Length Dosing, 127.46, kg, 03/17/23 11:59:00 EDT, Weight Dosing Start Date: 06/25/23 Stop Date: 06/19/24 Status: Ordered MiraLax oral powder for reconstitution 17 g, Oral, Daily, # 238 g, 1 Refill(s), [facility], 157.48, cm, 03/17/23 11:59:00 EDT, Height/Length Dosing, 127.46, kg, 03/17/23 11:59:00 EDT, Weight Dosing Start Date: 06/25/23 Status: Ordered omeprazole 40 mg oral delayed release capsule 40 mg = 1 cap, Oral, Daily, # 90 cap, 3 Refill(s), [facility], 157.48, cm, 03/17/23 11:59:00 EDT, Height/Length Dosing, 127.46, kg, 03/17/23 11:59:00 EDT, Weight Dosing Start Date: 06/25/23 Stop Date: 06/19/24 Status: Ordered ondansetron 4 mg oral tablet 4 mg = 1 tab, Oral, every 12 hr, # 10 tab, 0 Refill(s), [facility], 157.48,cm, 03/17/23 11:59:00 EDT, Height/Length Dosing, 127.46, [...] Daily, # 30 tab, 2 Refill(s), [facility], 157.48, cm, 03/17/23 11:59:00 EDT, Height/Length Dosing, 127.46, kg, 03/17/23 11:59:00 EDT, Weight Dosing Start Date: 06/17/23 Stop Date: 09/15/23 Status: Ordered Seroquel 50 mg oral tablet 50 mg = 1 tab, Oral, every night at bedtime, Please place in blister pack to help client with compliance., # 30 tab, 2 Refill(s), [facility], 157.48, cm, 03/17/23 11:59:00 EDT, Height/Length Dosing, 127.46, kg, 03/17/23 11:59:00 EDT, Weight Dosing Start Date: 06/17/23 Stop Date: 09/15/23 Status: Ordered Vitamin B6 100 mg oral tablet 100 mg = 1 tab, Oral, TID w/ Meals, for 30 days, # 90 tab, 2 Refill(s), Pharmacy: [facility], 157.48, cm, 03/17/23 11:59:00 EDT, Height/Length Dosing, 127.46, kg, 03/17/23 11:59:00 EDT,Weight Dosing Start Date: 06/17/23 Stop Date: 09/15/23 Status: Ordered Vitamin D3 2000 intl units oral capsule 2 caps, Oral, Daily, # 180 cap, 3 Refill(s), Pharmacy: [facility], 163, cm, 07/01/22 17:43:00 EDT, Height/Length Dosing, 126, kg, 07/01/22 17:43:00 EDT, Weight Dosing Start Date: 03/09/23 Stop Date: 03/03/24 Status: Ordered Wellbutrin XL 300 mg/24 hours oral tablet, extended release 300 mg = 1 tab, Oral, Daily, Please d/c wellburin XL 150 mg and any refills for it., # 30 tab, 2 Refill(s), Pharmacy: [facility], 157.48, cm, 03/17/23 11:59:00 EDT, Height/Length Dosing, 127.46, kg, 03/17/23 11:59:00 EDT, Weight Dosing Start Date: 07/17/23 Stop Date: 10/15/23 Status: Ordered Problem List Condition Confirmation Course [...] inevitable SAB Results Laboratory List Name Date Test Urine Qual 08/16/23 Drug Screen Urine 08/16/23 Urinalysis with Microscopic 08/16/23 Urinalysis Microscopic 08/16/23 Most recent to oldest [Reference Range]: 1 U Amph Scrn [Negative] Negative 1 (08/16/23 7:57 PM) UA Color Pale Yellow (08/16/23 7:57 PM) UA WBC [0-3] 0-3 (08/16/23 7:57 PM) U Benzodia Scrn [Negative] Positive *ABN* (08/16/23 7:57 PM) UA Urobilinogen Normal (08/16/23 7:57 PM) UA Bili [Negative] Negative (08/16/23 7:57 PM) UA Ketones Negative (08/16/23 7:57 PM) UA RBC [0-2] 0-2 (08/16/23 7:57 PM) UA Leuk Est Negative (08/16/23 7:57 PM) UA Nitrite Negative (08/16/23 7:57 PM) UA Glucose [Negative] Negative (08/16/23 7:57 PM) UA Bacteria Rare /HPF (08/16/23 7:57 PM) U Cocaine Scrn [Negative] Negative (08/16/23 7:57 PM) UA Protein Negative (08/16/23 7:57 PM) UA Blood Negative (08/16/23 7:57 PM) UA Mucous None Seen /HPF (08/16/23 7:57 PM) UA Spec Grav <=1.005 *NA* (08/16/23 7:57 PM) U Zulay Scrn [Negative] Negative (08/16/23 7:57 PM) UA Squam Epithelial [None Seen] Rare (08/16/23 7:57 PM) UA pH 6.5 *NA* (08/16/23 7:57 PM) U Opiate Scrn [Negative] Negative (08/16/23 7:57 PM) UA Appear Clear (08/16/23 7:57 PM) U Oxy Scrn [Negative] Negative (08/16/23 7:57 PM) U PCP Scrn [Negative] Negative (08/16/23 7:57 PM) U THC Scr [Negative] Negative (08/16/23 7:57 PM) U Methadone Scr [Negative] Negative (08/16/23 7:57 PM) UA Culture Ind?. Not Applicable (08/16/23 7:57 PM) U Buprenorph Scr [Negative] Negative (08/16/23 7:57 PM) U mAMP Scr [Negative] Negative (08/16/23 7:57 PM) U TCA Scr [Negative] Negative (08/16/23 7:57 PM) U hCG Ql Negative (08/16/23 8:02 PM) 1Interpretive Data: These are unconfirmed screening results, to be used only for medical (i.e. treatment) purposes. These screening results must not be used for non-medical purposes (e.g. employment or legal testing). New method started 04/24/11 Test Name Reference Range (Cut-off) THC Neg (50 ng/mL) PCP Neg (25 ng/mL) LORRIE Neg (150 ng/mL) MET Neg (500 ng/mL OPI Neg (100 ng/mL) AMP Neg (500 ng/mL BZO Neg (150 ng/mL) TCA Neg (300 ng/mL) MTD Neg (200 ng/mL) BAR Neg (200 ng/mL) OXY Neg (100 ng/mL) PPX Neg (300 ng/mL) BUP Neg (10 ng/mL) Vital Signs Most recent to oldest [Reference Range]: 1 Temperature Temporal Artery [36-38 Deg C ] 36.7 Deg C (08/16/23 7:31 PM) Peripheral Pulse Rate [60-100 bpm] 105 b pm *HI* (08/16/23 7:31 PM) Respiratory Rate [12-24 br/min] 18 br/mi n (08/16/23 7:31 PM) Blood Pressure [90-140/60-90 mmHg] 133/9 5mmHg (08/16/23 7:31 PM) Mean Arterial Pressure, Cuff [65-140 mmH g] 108 mmHg (08/16/23 7:31 PM) Weight Dosing 132.45 kg (08/16/23 7:39 PM) Weight Estimated 132.45 kg (08/16/23 7:31 PM) Height/Length Dosing 157.480 cm (08/16/23 7:39 PM) Height/Length Estimated 157.480 cm (08/16/23 7:31 PM) Social History Social History Type Response Tobacco Current everyday tob acco user Tobacco Use:. 1 PPD per day. Sex Female Physician Emergency department Note * Jeffry Mauricio MD: PERFORM Event Display: ED Note Physician Authored Date: [id number] ZURDO JEONG :1985 Age:38 years Sex:Female Visit Date:08/16/2023 Primary Care Physician: Mari Diggs HPI 38-year-old female with history of panic disorder, agoraphobia, PTSD, SI, and DM II presents for evaluation of 3 weeks of depression and anxiety that has affected her ability to leave her house. Patient reports that she has continued smoking and using cannabis but is otherwise been noncompliant with her medications for the last 3 weeks. Patient missed an outpatient mental health appointment last week and presented to the ER today as she is tired of feeling this way. Patient denies suicidal homicidal ideation, denies auditory visual hallucinations and while she is struggling with leaving her house she appears to be able to complete her ADLs at the present time. Patient notes stressors of a friend committing suicide as well as her daughter having mental health issues ROS with no recent constitutional symptoms. ?? Exam HR 105, BP 133/95, RR 18, T 36.7??C, SaO2 98% on room air. Gen: Pleasant, nontoxic-appearing, resting comfortably. HEENT: NC, AT, PEERL, EOMI. Resp: Unlabored respirations with a normal work of breathing. Card: Extremities warm and well perfused.?? GI: Non-distended. : Deferred MSK: No visible deformities, strength and tone without visually appreciable deficit. Neuro:??alert and oriented?3, no facial asymmetry, vision and hearing WNL. Heme/Lymph: Deferred Skin: Normal color with no visible lesions (other than noted above). Psych: Anxious, mildly depressed mood and affect. ?? Labs UA - negative nitrate, negative leukocyte esterase, negative glucose, rare bacteria, rare squamous epithelial cells, 0-3 WBCs, 0-2 RBCs. UDS with benzodiazepines. hCG negative. ?? MDM Previous chart, nursing note, and vitals reviewed.?? A: 38-year-old female with history of panic disorder, agoraphobia, PTSD, SI, and DM II presents forevaluation of 3 weeks of depression and anxiety that has affected her ability to leave her house.? DDx & Evaluation:?UDS with benzodiazepines, patient noted after her nursing triage and my evaluation that she didtake 3 Ativan (prescribed 1 mg 3 times daily) at approximately noon today. This is consistent with the patient's drug screen. The patient is without features suggestive of excess sedation.?1 mg p.o. Ativan as well as 2 mg IM haloperidol and 12.5 mg IM diphenhydramine were ordered forsymptom management. ?No features clearly were suggestive of gross decompensation, patient continues to minimally meet ADLs, is without auditory or visual hallucinations, no suicidal or homicidal ideation, and remainsgoal-directed with a desire for addressing her issues on an outpatient basis. ?Patient with significant improvement of symptoms after the above interventions. ?UA without evidence of infection, glucose, and the patient's hCG is negative. ?As the patient has had a resolution of her significant distress with the above interventions, is goal-directed, and is without SI, HI, or grave decompensation, she is appropriate for ongoing outpatient management and was discharged with instructions to follow-up with her outpatient mental health care provider. ?Repeat evaluation at approximately 9:10 PM with patient was significant proved, wishes to be discharged home, denies SI, HI, and reports that she will follow-up with her outpatient mental health care provider on Thursday. ??Patient recommended to resume her home medications, return to care precautions provided. ?? Impression: Medication noncompliance, agoraphobia, anxiety. Electronically Signed on 08/16/23 09:15 PM Jeffry Mauricio MD Emergency department Discharge instructions * Jeffry Mauricio MD: PERFORM Event Display: ED Discharge Information Authored Date: [id number] ZURDO JEONG :1985 Age:38 years Sex:Female Visit Date:08/16/2023 Primary Care Physician: Mari Diggs Discharge Instructions We would like to thank you for allowing us to assist you with your healthcare needs. The following includes patient education materials and information regarding your injury/illness. ?? You were seen at [facility] for evaluation for evaluation of??recent stressors, difficulty in leaving her house, and medication noncompliance. Please continue taking all of your medications as prescribed. Please strongly consider reducing or stopping your cannabis use, and please follow-up with your outpatient mental health care provider on Thursday. Should you develop any new or concerning symptoms, please return immediately to the emergency department.??Please read and follow all ofthe instructions below. ?? Please follow up with your primary care physician??on Thursday-Thursday for repeat evaluation and further care as needed. When calling for follow-up care, please make the office aware that this follow-up is from your recent emergency room visit.? Your care today was limited to identifying and treating emergent medical problems only. Many peoplehave subtle differences in their test results that require follow up with their outpatient physician(s) to correctly determine if this represents a normal variation or concerning abnormality with respect to your specific health.??The care given to you today was limited to identifying and treating emergent medical problems - you need to request a copy of all of your medical records from today's visit and follow up with your outpatient physician(s) to review both today's visit and your overall health. If you have any new symptoms or if you are at all concerned about your health please return immediately to the emergency department. ?? Prescriptions: If you are uninsured or have financial difficulties with filling your prescription(s), you may consider using a free pharmacy discount service such as [employer] ([employer]) or [employer] ([employer]). These services allow you to search for a medication on your phone (or computer) and obtain a coupon that usually has a significant discount from the list underwood at a pharmacy. Your physician does not have a financial relationship with either of these services. You may also wish to speak with your physician to determine if lower cost prescriptions are possible. ?? Discharge Vitals Temperature??(Temporal Artery) 98.1 ??F (36.7 ??C) Heart Rate??(Peripheral) 105 Respiratory Rate?? 18 Blood Pressure?? 133/95?? Height?? 62.00 in (157.480 cm) Weight??(Estimated) 292.05 lb (132.45 kg) Allergies Cilantro GRAPEFRUIT penicillins??(Urticaria) sulfa drugs??(Swollen face) What to Do Next Upcoming Scheduled Appointments Thursday 8:20 AM EDT ?? With: Dixie Vega NP Where: [facility] [address] [address] Status: Confirmed Thursday 8:45 AM EDT ?? With: Gaby Mac DNP Where: [address] [address] Status: Confirmed 2022 2:40 PM EST ?? With: Mari Diggs Where: [facility] [address] [address] Status: Confirmed Thursday 10:15 AM EST ?? With: Gaby Mac DNP Where: [address] [address] Status: Confirmed 2023 12:30 PM EDT ?? With: Senait Alvarez NP Where: [facility] [address] [place] [address] Status: Confirmed You were treated [...] How Much When Why Instructions Next Dose Unchanged brexpiprazole (Rexulti 1 mg oral tablet) [...] Vitamin D deficiency Duration: 90 Days Unchanged erythromycin ophthalmic (erythromycin 0.5% ophthalmic ointment) 1 Application Both eyes 4 times a day Hordeolum externum (stye) Duration: 7 Days Unchanged gabapentin (gabapentin 300 mg oral [...] N&V (nausea and vomiting) Unchanged Other Pres[facility] 1 strip 100 EA, USE 1 [...] pack to help client with compliance. ?? Tests Performed Medications and Immunizations Administered Given Ativan, 1 mg, Oral Lab Test Name Test Result Date/Time U hCG Ql NEGATIVE 08/16/2023 20:02 EDT U Amph Scrn NEGATIVE 08/16/2023 19:57 EDT U Zulay Scrn NEGATIVE 08/16/2023 19:57 EDT U Benzodia Scrn POSITIVE 08/16/2023 19:57 EDT U Buprenorph Scr NEGATIVE 08/16/2023 19:57 EDT U Cocaine Scrn NEGATIVE 08/16/2023 19:57 EDT U TCA Scr NEGATIVE 08/16/2023 19:57 EDT U THC Scr NEGATIVE 08/16/2023 19:57 EDT U mAMP Scr NEGATIVE 08/16/2023 19:57 EDT U Methadone Scr NEGATIVE 08/16/2023 19:57 EDT U Opiate Scrn NEGATIVE 08/16/2023 19:57 EDT U Oxy Scrn NEGATIVE 08/16/2023 19:57 EDT U PCP Scrn NEGATIVE 08/16/2023 19:57 EDT UA Color Pale Yello 08/16/2023 19:57 EDT UA Appear CLEAR. 08/16/2023 19:57 EDT UA Glucose NEGATIVE 08/16/2023 19:57 EDT UA Bili NEGATIVE 08/16/2023 19:57 EDT UA Ketones NEGATIVE 08/16/2023 19:57 EDT UA Spec Grav <=1.005 08/16/2023 19:57 EDT UA Blood NEGATIVE 08/16/2023 19:57 EDT UA pH 6.5 08/16/2023 19:57 EDT UA Protein NEGATIVE 08/16/2023 19:57 EDT UA Urobilinogen 0.2 Uro 08/16/2023 19:57 EDT UA Nitrite NEGATIVE 08/16/2023 19:57 EDT UA Leuk Est NEGATIVE 08/16/2023 19:57 EDT UA Culture Ind?. Not Applicable 08/16/2023 19:57 EDT UA WBC 0-3 08/16/2023 19:57 EDT UA RBC 0-2 08/16/2023 19:57 EDT UA Squam Epithelial Rare 08/16/2023 19:57 EDT UA Mucous None Seen 08/16/2023 19:57 EDT UA Bacteria Rare 08/16/2023 19:57 EDT Patient/Broadcasting Equipment Mechanic Signature Patient Name:ZURDO JEONG I have received this information and my questions have been answered. Patient/Broadcasting Equipment Mechanic Name: Patient/Broadcasting Equipment Mechanic Signature: Relationship to Patient: Witness Name/Signature: Date: Electronically Signed on: 08/16/2023 21:15 EDTSigned by:RADHA Patient Care team information Care Team Personnel Name: Mari Diggs Position: Physician Member Role: Informed Provider Address: Address: [facility] [address] [address]- [place] Name: Rl Harmon RD Position: Dietitian Member Role: Torque Tester Name: Bernabe Amato RN Position: Nurse Member Role: ED Nurse Name: Jeffry Mauricio MD Position: Physician Member Role: Admitting Physician Care Team Related Persons Name: MAGY URIAS Address: Home [address] [place] [phone]
--- OUTSIDE RECORDS SUMMARY | 2023-08-18 11:09 | XMS_ITS | Continuity of Care Document ---
Author Name Unknown Organization [facility] Address [address] [place] [address] Care Team Providers Care Tapper Balance Wheel Screw Hole Name Role Phone Mari Diggs Primary Care Physician [phone] [facility] - 01/27/[address] [address] Discharge Disposition: Home Allergies, Adverse Reactions, Alerts [...] 3 Refill(s), Pharmacy: [facility] Start Date: 04/01/22 Stop Date: 03/27/23 Status: Ordered loratadine 10 mg oral tablet 10 mg = 1 tab, Oral, Daily, # 90 tab, 3 Refill(s), Pharmacy: [facility] Start Date: 04/01/22 Stop Date: [...] 3 Refill(s), Pharmacy: [facility] Start Date: 04/01/22 Stop Date: [...] Daily, # 30 tab, 2 Refill(s), Pharmacy: [facility], 163, cm, 07/01/22 17:43:00 EDT, Height/Length Dosing, 126, kg, 07/01/22 17:43:00 EDT, Weight Dosing Start Date: 11/07/22 Stop Date: 02/05/23 Status: Ordered Vitamin B6 100 mg oral tablet 100 mg = 1 tab, Oral, TID w/ Meals, for 30 days, # 90 tab, 2 Refill(s), [facility], 163, cm, 07/01/22 17:43:00 EDT, Height/Length Dosing, 126, kg, 07/01/22 17:43:00 EDT, Weight Dosing Start Date: 11/07/22 Stop Date: 02/05/23 Status: Ordered Vitamin D3 2000 intl units oral capsule 2 caps, Oral, Daily, # 180 cap, 3 Refill(s), Pharmacy: [facility] Start Date: 03/05/22 Stop Date: 02/28/23 Status: Ordered Wellbutrin XL 150 mg/24 hours oral tablet, extended release 150 mg = 1 tab, Oral, every morning, for 30 days, # 30 tab, 2 Refill(s), [facility], cm, 07/01/22 17:43:00 EDT, Height/Length [...] Member Role: Primary Care Physician Address: Address: [facility] [id number] [place] [address] Name: Rl Harmon [address] Position: Dietitian Member Role: Field Crop Technical Officer Care Team Related Persons Name: MAGY STEVE Address: Home [address] [place] [phone]
--- OUTSIDE RECORDS SUMMARY | 2023-08-18 11:09 | XMS_ITS | Continuity of Care Document ---
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 U PCP Scrn?? 03/16/23 05:50?? Negative?? 11/07/22?? Negative?? U PPX Scr?? 03/16/23 05:50?? Negative?? 11/07/22?? Negative? UA Macroscopic?? LATEST RESULTS?? HISTORICAL RESULTS?? UA Color?? 03/16/23 05:50?? Yellow?? 07/01/22?? Straw?? UA Appear?? 03/16/23 05:50?? Clear?? 07/01/22?? Clear?? UA Glucose?? 03/16/23 05:50?? Negative?? 07/01/22?? Negative?? UA Bili?? 03/16/23 05:50?? Negative?? 07/01/22?? Negative?? UA Ketones?? 03/16/23 05:50?? Trace Abnormal?? 07/01/22?? Negative?? UA Spec Grav?? 03/16/23 05:50?? 1.025?? 07/01/22?? <=1.005?? UA Blood?? 03/16/23 05:50?? Negative?? 07/01/22?? Negative?? UA pH?? 03/16/23 05:50?? 6.0?? 07/01/22?? 6.5?? UA Protein?? 03/16/23 05:50?? Negative?? 07/01/22?? Negative?? UA Urobilinogen?? 03/16/23 05:50?? Normal?? 07/01/22?? Normal?? UA Nitrite?? 03/16/23 05:50?? Negative?? 07/01/22?? Negative?? UA Leuk Est?? 03/16/23 05:50?? Negative?? 07/01/22?? Negative? Electronically Signed on 03/16/23 06:53 AM Yosef Shepard MD Emergency department Discharge instructions * Yosef Shepard MD: PERFORM Event Display: ED Discharge Information Authored Date: [id number] JEAN-PAUL ZURDO Steve :1985 Age:38 years Sex:Female Visit Date:03/15/2023 Primary Care Physician: Mari Diggs Discharge Instructions We would like to thank you for allowing us to assist you with your healthcare needs. The following includes patient education materials and information regarding your injury/illness. Diagnosis from Today's Visit Benzodiazepine overdose Discharge Vitals Temperature??(Temporal Artery) 99.0 ??F (37.2 ??C) Heart Rate??(Peripheral) 79 Heart Rate??(Monitored) 79 Respiratory Rate?? 25 Blood Pressure?? 99/57?? Height?? 66.14 in (168.000 cm) Weight?? 288.86 lb (131.00 kg) BMI?? 46.000 Allergies Cilantro GRAPEFRUIT penicillins??(Urticaria) sulfa drugs??(Swollen face) What to Do Next You Need to Schedule the Following Appointments Follow Up with??Mari Diggs When:??Within 1 month Where: [facility] [address] [address]- Upcoming Scheduled Appointments Thursday 1:00 PM EDT ?? Thursday 12:00 PM EDT ?? Thursday 10:15 AM EDT ?? Thursday 9:00 AM EDT ?? You were treated today on an emergency [...] Why Instructions Next Dose Unchanged brexpiprazole (Rexulti 4 mg oral tablet) 1 tab Oral (given by mouth) Every day Major depressive disorder, severe Duration: 30 Days Unchanged buPROPion (buPROPion 300 mg/ 24 hours (XL) oral tablet, extended release) 1 tab Oral (given by mouth) Every morning Recurrent major depressive episodes, moderate Anxiety disorder Duration: 30 Days Unchanged buPROPion (Wellbutrin XL 150 mg/ 24 hours oral tablet, extended release) 1 tab Oral (given by mouth) Every morning Recurrent major depressive episodes, moderate Anxiety disorder Duration: 30 Days for 30 days ?? Unchanged cholecalciferol (Vitamin D3 2000 intl units oral capsule) 2 caps Oral (given by mouth) Every day Vitamin D deficiency Duration: 90 Days Unchanged dulaglutide (Trulicity Pen 0.75 mg/ 0.5 mL subcutaneous solution) 0.5 Milliliters Subcutaneous (under the skin) Every week DM2 (diabetes mellitus, type 2) Duration: 30 Days rotate injection sites ?? Unchanged gabapentin (gabapentin 300 mg oral capsule) 1 Capsules Oral (given by mouth) Every night at bedtime 28 cap ?? Unchanged hydroCHLOROthiazide (hydroCHLOROthiazide 25 mg oral tablet) 1 tab Oral (given by mouth) Every day 28 tab ?? Unchanged lisinopril (lisinopril 20 mg oral tablet) 1 tab Oral (given by mouth) Every day Hypertensive disorder Duration: 90 Days Unchanged loratadine (loratadine 10 mg oral tablet) 1 tab Oral (given by mouth) Every day Hypertensive disorder Gastroesophageal reflux disease without esophagitis Allergic rhinitis Duration: 90 Days Unchanged LORazepam (LORazepam 0.5 mg oral tablet) 1 tab Oral (given by mouth) 3 times a day Panic disorder without agoraphobia Anxiety disorder Posttraumatic stress disorder Duration: 28 Days Unchanged magnesium gluconate (magnesium gluconate 500 mg oral tablet) 1 tab Oral (given by mouth) Every day Duration: 90 Days if not avail, may subsitute with magnesium gluconate 250mg tab 2 tabs daily, 180 tabs x 3 refills ?? Unchanged omeprazole (omeprazole 40 mg oral delayed release capsule) 1 Capsules Oral (given by mouth) Every day Hypertensive disorder Gastroesophageal reflux disease without esophagitis Duration: 90 Days Unchanged Other Prescription (AAA - Misc Prescription) 1 strip 100 EA, USE 1 STRIP TO CHECK GLUCOSE ONCE DAILY ?? Unchanged Other Prescription (ONETOUCH DELICA CHRISTIE 33G MIS) use as directed to teest blood sugar once daily ?? Unchanged Other Prescription (ONETOUCH ULTRA 2 KIT) use as diredcted to check glucose once daily ?? Unchanged pyridoxine (Vitamin B6 100 mg oral tablet) 1 tab Oral (given by mouth) 3 times a day (with meals) Tremor, unspecified Duration: 30 Days for 30 days ?? Education Materials Benzodiazepine Overdose Benzodiazepines are prescription medicines that decrease the activity of (depress) the central nervous system and cause changes in certain brain chemicals (neurotransmitters). The most commonly prescribed benzodiazepines are: ? Alprazolam. ? Lorazepam. ? Clonazepam. ? Diazepam. ? Temazepam. A benzodiazepine overdose happens when you take too much of your medicine. The effects of an overdose can be mild, dangerous, or even deadly. Benzodiazepine overdose is a medical emergency. What are the causes? This condition may be caused by: ? Taking too much of a medicine by accident. ? Taking too much of a medicine on purpose. ? An error made by a health care provider who prescribes a medicine. ? An error made by the pharmacist who fills the prescription order. What increases the risk? This condition is more likely in: ? Children. They may be attracted to colorful pills. Because of a child's small size, even a small amount of a medicine can be dangerous. ? Elderly people. They may be taking many different medicines. Elderly people may have difficulty reading labels or remembering when they last took their medicine. ? People who use: ? Illegal drugs. ? Other substances, including alcohol, while taking benzodiazepines. ? People who have: ? A history of drug or alcohol abuse. ? Certain mental health conditions. ? Breathing problems. ? Liver problems. What are the signs or symptoms? Symptoms of this condition depend on the type of medicine and the amount that was taken. Common symptoms of this condition include: ? Drowsiness. ? Confusion. ? Lack of energy. ? Slurred speech. ? Clumsiness. ? Muscle weakness. ? Dizziness. ? Slow breathing. ? Coma. from a benzodiazepine overdose is rare. is more likely if benzodiazepines are taken at the same time as other central nervous system depressants, such as alcohol. How is this diagnosed? This condition is diagnosed based on your symptoms, medical history, a physical exam, and tests. Itis important to tell your health care provider: ? About all of the medicines that you took. ? When you took the medicines. ? Whether you have been drinking alcohol or using other substances. Your health care provider will do a physical exam. This exam may include: ? Checking and monitoring your heart rate and rhythm, your temperature, and your blood pressure (vital signs). ? Checking your breathing and blood oxygen level. You may also have blood tests or urine tests. How is this treated? This condition may be treated by supporting your vital signs and your breathing. A benzodiazepine overdose may also be treated by: ? Giving fluids and minerals (electrolytes) through an IV. ? Inserting a breathing tube (endotracheal tube) in your airway to help you breathe. ? Passing a tube through your nose and into your stomach (NG tube or nasogastric tube) to remove the contents of your stomach. ? Giving medicines that: ? Increase your blood pressure. ? Reverse the effects of the benzodiazepine (flumazenil). ? Absorb any benzodiazepine that is in your digestive system. This treatment is rare. ? Ongoing counseling and mental health support if you intentionally overdosed or used an illegal drug. Follow these instructions at home: ? Take [id number] and prescription medicines only as told by your health care provider. Always ask your health care provider about possible side effects and interactions of any new medicine that you start taking. ? Keep a list of all the medicines that you take, including vxgr-nml-fymlylb medicines. Bring this list with you to all of your medical visits. ? Drink enough fluid to keep your urine pale yellow. ? Keep all follow-up visits as told by your health care provider. This is important. How is this prevented? Get help if you are struggling with: ? Alcohol or drug use. ? Depression or another mental health problem. ? Keep the phone number of your local poison control center near your phone or on your cell phone. ? Store all medicines in safety containers that are out of the reach of children. ? Read the drug inserts that come with your medicines. ? Do not drink alcohol when taking benzodiazepines. ? Do not use illegal drugs. ? Do not take benzodiazepines that are not prescribed for you. Contact a health care provider if: ? Your symptoms return. ? You develop new symptoms or side effects when you take medicines. Get help right away if: ? You think that you or someone else may have taken too much of a benzodiazepine. The hotline of the [place] is . ? You or someone else is having symptoms of a benzodiazepine overdose. ? You have serious thoughts about hurting yourself or others. ? You have: ? Difficulty breathing. ? A loss of consciousness. ? A seizure. ? You feel dizzy all the time. ? You feel weak or you faint. Benzodiazepine overdose is an emergency. Do not wait to see if the symptoms will go away. Get medical help right away. Call your local emergency services (960 in the [place] Do not drive yourself to the hospital. Summary ? A benzodiazepine overdose happens when you take too much of your medicine. ? The effects of an overdose can be mild, dangerous, or even deadly. ? This condition may be treated by supporting your vital signs and your breathing. ? Get medical help right away if you think that you or someone else may have taken too much of a benzodiazepine. This information is not intended to replace advice given to you by your health care provider. Make sure you discuss any questions you have with your health care provider. Document Revised: 06/23/2019 Document Reviewed: 06/23/2019 [employer] Patient Education ?? 2021 [employer] Tests Performed Medications and Immunizations Administered Given NS bolus, 1000 mL, IV Piggyback Lab Test Name Test Result Date/Time pH Paul 7.46 pH unit(s) 03/15/2023 21:43 EDT pCO2 Paul 38 mmHg 03/15/2023 21:43 EDT pO2 Paul 61 mmHg 03/15/2023 21:43 EDT HCO3 Venous 27 mmol/L 03/15/2023 21:43 EDT O2 Sat Paul 94 % 03/15/2023 21:43 EDT CO2 Total Venous 28 mmol/L 03/15/2023 21:43 EDT Base Excess Venous 3.1 mmol/L 03/15/2023 21:43 EDT WBC 16.9 x10^3/mcL 03/15/2023 21:25 EDT RBC 4.9 x10^6/mcL 03/15/2023 21:25 EDT Hgb 14.0 g/dL 03/15/2023 21:25 EDT Hct 42.6 % 03/15/2023 21:25 EDT MCV 86.2 fL 03/15/2023 21:25 EDT MCH 28.3 pg 03/15/2023 21:25 EDT MCHC 32.9 g/dL 03/15/2023 21:25 EDT RDW-CV 15.0 % 03/15/2023 21:25 EDT Platelets 356 x10^3/mcL 03/15/2023 21:25 EDT Segs Man 64 % 03/15/2023 21:25 EDT Lymph Man 32 % 03/15/2023 21:25 EDT Republic Man 2 % 03/15/2023 21:25 EDT Eos Man 0 % 03/15/2023 21:25 EDT Baso Man 0 % 03/15/2023 21:25 EDT Band Man 0 % 03/15/2023 21:25 EDT Abs Neut Man 10.8 x10^3/mcL 03/15/2023 21:25 EDT RBC Morph Normal 03/15/2023 21:25 EDT Immature Cells 2 03/15/2023 21:25 EDT Slide Review Man Diff 03/15/2023 21:25 EDT Sodium Level 140 mmol/L 03/15/2023 21:25 EDT Potassium Level 3.6 mmol/L 03/15/2023 21:25 EDT Chloride Level 104 mmol/L 03/15/2023 21:25 EDT CO2 27 mmol/L 03/15/2023 21:25 EDT Alk Phos 99 unit/L 03/15/2023 21:25 EDT AST 19 unit/L 03/15/2023 21:25 EDT ALT 42 unit/L 03/15/2023 21:25 EDT BUN 12 mg/dL 03/15/2023 21:25 EDT Glucose Level 156 mg/dL 03/15/2023 21:25 EDT Creatinine Level 1.09 mg/dL 03/15/2023 21:25 EDT eGFR AA 66 03/15/2023 21:43 EDT eGFR Non-AA 66 03/15/2023 21:43 EDT Calcium Level 9.5 mg/dL 03/15/2023 21:25 EDT Protein Total 7.8 g/dL 03/15/2023 21:25 EDT Albumin Level 3.6 g/dL 03/15/2023 21:25 EDT Bilirubin Total 0.3 mg/dL 03/15/2023 21:25 EDT Lactic Acid Lvl 1.7 mmol/L 03/15/2023 21:43 EDT Magnesium Level 2.0 mg/dL 03/15/2023 21:25 EDT Beta hCG Qnt 1 mIntlUnit/mL 03/15/2023 21:25 EDT Acetaminophen Level <10 ug/mL 03/15/2023 21:25 EDT Salicylate Level 3.6 mg/dL 03/15/2023 21:25 EDT Ethanol Level <5 mg/dL 03/15/2023 21:25 EDT U Amph Scrn NEGATIVE 03/16/2023 05:50 EDT U Zulay Scrn NEGATIVE 03/16/2023 05:50 EDT U Benzodia Scrn POSITIVE 03/16/2023 05:50 EDT U Buprenorph Scr NEGATIVE 03/16/2023 05:50 EDT U Cocaine Scrn NEGATIVE 03/16/2023 05:50 EDT U TCA Scr NEGATIVE 03/16/2023 05:50 EDT U THC Scr POSITIVE 03/16/2023 05:50 EDT U mAMP Scr NEGATIVE 03/16/2023 05:50 EDT U Methadone Scr NEGATIVE 03/16/2023 05:50 EDT U Opiate Scrn NEGATIVE 03/16/2023 05:50 EDT U Oxy Scrn NEGATIVE 03/16/2023 05:50 EDT U PCP Scrn NEGATIVE 03/16/2023 05:50 EDT U PPX Scr NEGATIVE 03/16/2023 05:50 EDT UA Color YELLOW. 03/16/2023 05:50 EDT UA Appear CLEAR. 03/16/2023 05:50 EDT UA Glucose NEGATIVE 03/16/2023 05:50 EDT UA Bili NEGATIVE 03/16/2023 05:50 EDT UA Ketones TRACE. 03/16/2023 05:50 EDT UA Spec Grav 1.025 03/16/2023 05:50 EDT UA Blood NEGATIVE 03/16/2023 05:50 EDT UA pH 6.0 03/16/2023 05:50 EDT UA Protein NEGATIVE 03/16/2023 05:50 EDT UA Urobilinogen 0.2 Uro 03/16/2023 05:50 EDT UA Nitrite NEGATIVE 03/16/2023 05:50 EDT UA Leuk Est NEGATIVE 03/16/2023 05:50 EDT Patient/Cell Attendant Helper Signature Patient Name:ZURDO JEONG I have received this information and my questions have been answered. Patient/Cell Attendant Helper Name: Patient/Cell Attendant Helper Signature: Relationship to Patient: Witness Name/Signature: Date: Electronically Signed on: 03/16/2023 06:53 EDTSigned by:[facility] Emergency department Note * Marianne Stringer: PERFORM Event Display: ED Notes Authored Date: [id number] * Marianne Stringer: PERFORM Event Display: ED Notes Authored Date: [id number] Discharge summary * Marianne Stringer: PERFORM Event Display: Discharge Note Authored Date: [id number] * Marianne Stringer: PERFORM Event Display: Discharge Note Authored Date: [id number] Diagnosis: 1. Benzodiazepine overdose Comment: Diagnosis: Intentional drug overdose Comment: Electronically Signed on 03/16/23 07:05 AM Marianne Stringer Patient Care team information Care Team Personnel Name: Mari Diggs Position: Physician Member Role: Informed Provider Address: Address: [address] Name: [address] Position: Dietitian Member Role: Real Estate Assessor Name: Marcelino Gaston RN Position: Nurse Member Role: ED Nurse Name: Alysia Calvert Position: Nurse Member Role: ED Nurse Name: Yosef Shepard MD Position: Physician Member Role: Attending Physician Address: Address: [facility] [address] [place] [address] [place] [address]- Care Team Related Persons Name: MAGY STEVE Address: Home [address] [place], [place] [id number]
--- OUTSIDE RECORDS SUMMARY | 2023-08-18 11:09 | XMS_ITS | Continuity of Care Document ---
Author Name Unknown Organization [facility] Address [address] [place] [address] Care Team Providers Care Hunter Guide Name Role Phone Mari Diggs Primary Care Physician Encounter [facility] [id number] Date(s): 09/24/22 - 09/24/[address] [address] Discharge Disposition: Home or Self Care Attending Physician: Mari Diggs Admitting Physician: Mari Diggs Allergies, Adverse Reactions, Alerts Substance Reaction Severity Status GRAPEFRUIT Unknown Active penicillins Urticaria Unknown Active sulfa drugs Swollen face Unknown Active Assessment and Plan Future Appointments Diagnostic Tests Pending * Fecal Bacterial Pathogens by PCR [facility] 09/24/22 Immunizations Given and Recorded Vaccine Date Status [...] morning, # 30 tab, 2 Refill(s), Pharmacy: [facility], 163, cm, 07/01/22 17:43:00 EDT, Height/Length Dosing, 126, kg, 07/01/22 17:43:00 EDT, Weight Dosing Start Date: 08/04/22 Stop Date: 11/02/22 Status: Ordered gabapentin 300 mg oral capsule 300 mg = 1 cap, Oral, every night at bedtime, 28 cap, # 30 cap, 2 Refill(s), Pharmacy: [facility] [...] stool, # 40 tab, 0 Refill(s), Pharmacy: [place] [id number], 163, cm, 07/01/22 17:43:00 EDT, Height/Length Dosing, 126, kg, 07/01/22 17:43:00 EDT, Weight Dosing Start Date: 09/10/22 Status: Ordered lisinopril 20 mg oral tablet 20 mg = 1 tab, Oral, Daily, # 90 tab, 3 Refill(s), Pharmacy: [facility] Start Date: 04/01/22 Stop Date: 03/27/23 Status: Ordered loratadine 10 mg oral tablet 10 mg = 1 tab, Oral, Daily, # 90 tab, 3 Refill(s), Pharmacy: [facility] Start Date: 04/01/22 Stop Date: 03/27/23 Status: Ordered LORazepam 1 mg oral tablet 1 mg = 1 tab, Oral, BID, Please fill 09/15/2022, # 14 tab, 1 Refill(s), Pharmacy: [facility], 163, cm, 07/01/22 17:43:00 EDT, Height/Length Dosing, 126, kg, 07/01/22 17:43:00 EDT, Weight Dosing Start Date: 09/05/22 Stop Date: 09/19/22 Status: Ordered nicotine 21 mg/24 hr transdermal film, extended release 1 patches, TD, Daily, # 21 patches, 0 Refill(s), Pharmacy: [facility], 162, cm, 04/07/22 9:11:00 EDT, Height/Length Dosing, 130, kg, 04/07/22 9:11:00 EDT, Weight Dosing Start Date: 06/09/22 Status: Ordered omeprazole 40 mg oral delayed release capsule 40 mg = 1 cap, Oral, Daily, # 90 cap, 3 Refill(s), Pharmacy: [facility] Start Date: 04/01/22 Stop Date: 03/27/23 [...] days, # 102 g, 0 Refill(s), Pharmacy: [facility], 162, cm, 04/07/22 9:11:00 EDT, Height/Length Dosing, [...] increase, # 6 mL, 1 Refill(s), Pharmacy: [facility], 163, cm, 07/01/22 17:43:00 EDT, Height/Length Dosing, 126,kg, 07/01/22 17:43:00 EDT, Weight Dosing Start Date: 07/15/22 Status: Ordered Vitamin B6 100 mg oral tablet 100 mg = 1 tab, Oral, TID w/ Meals, for 30 days, # 90 tab, 2 Refill(s), Pharmacy: [facility], 163, cm, 07/01/22 17:43:00 EDT, Height/Length Dosing, 126, kg, 07/01/22 17:43:00 EDT, Weight Dosing Start Date: 08/04/22 Stop Date: 11/02/22 Status: Ordered Vitamin D3 2000 intl units oral capsule 2 caps, Oral, Daily, # 180 cap, 3 Refill(s), Pharmacy: [facility] Start Date: 03/05/22 Stop Date: 02/28/23 Status: Ordered Wellbutrin XL 150 mg/24 hours oral tablet, extended release 150 mg = 1 tab, Oral, every morning, for 30 days, # 30 tab, 2 Refill(s), Pharmacy: [facility], 163, cm, 07/01/22 17:43:00 EDT, Height/Length Dosing, [...] Body Site Status TLH, DAVE, lap. [facility] 7/28/20 Compl eted Laparoscopic bilateral salpingectomy 10/03/18 Completed Left wrist mass excision 2013 Completed Dilation and curettage 1 10/18/11 Completed Tonsillectomy and adenoidectomy 10/18/96 Completed Fatty tumor removal Compl eted 1For inevitable SAB Results Laboratory List Name Date Clostridium Difficile (C Diff) 09/24/22 Giardia/Crypto Ag 09/24/22 Most recent to oldest [Reference Range]: 1 Clostridium Difficile Toxin [Negative] N egative (09/24/22 8:01 AM) Giardia Ag [Negative] Negative (09/24/22 8:01 AM) Cryptospor Ag [Negative] Negative (09/24/22 8:01 AM) Social History Social History Type Response Tobacco Current everyday tob acco user Tobacco Use:. 1 PPD per day. Sex Female Patient Care team information Personnel Name: Mari Diggs Address: Address: [facility] [id number] [place] [address]
--- OUTSIDE RECORDS SUMMARY | 2023-08-18 11:09 | XMS_ITS | Continuity of Care Document ---
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 mRNA-1273 vaccine 03/09/2021 Recorded SARS-CoV-2 (COVID-19) mRNA-1273 vaccine 02/09/2021 Recorded influenza virus vaccine, live 07/11/2020 Recorded influenza virus vaccine, live 09/05/2019 Recorded Comments : pt tolerated well influenza virus vaccine, inactivated 09/23/2016 Recorded influenza virus vaccine, inactivated 07/19/2011 Recorded tetanus/diphth/pertuss (Tdap) adult/adol 10/07/2010 Recorded Lab Results Test Name Test Result Date/Time Glucose POC 121 mg/dL 08/03/2023 09:49 EDT Electronically Signed on 08/03/23 10:28 AM Jonathan Cobos MD * Sherlyn King: PERFORM Event Display: History and Physical Authored Date: [id number] DOROTHY JEONG :1985 Age:38 years Sex:Female Primary Care Physician: Mari Diggs Chief Complaint rectal bleeding History of Present Illness Dorothy is a 38-year-old??presents with??what she describes as a lifelong??problem with??bowel activity.?? Complains of rectal pain with bowel movements??occasionally has??blood in the toilet??bowl??and stool??and on the tissue. In the past??problems mainly been constipation??with pain in the rectum??no history of??fissure or being treated for a fissure. ??Recently??she started having diarrhea??3-4 loose stools a day??question if there is no blood??in the stool orifice more on the tissue Strong family history of Crohn's disease mother and grandpa mother. Does complain of some lower abdominal discomfort no specific right lower quadrant discomfort Physical Exam ?Vitals & Measurements ?T:??36.3?C ??(Tympanic)?? HR:??87??(Peripheral)?? BP:??113/74?? SpO2:??99%?HT:??157.48??cm?? WT:??130.95??kg?? BMI:??52.8?? BSA:??2.39?Cooperative??well-nourished female in no acute distress??does appear little anxious HEENT eyes are nonicteric pupils are equal??conjunctiva is clear Trachea is in midline no neck masses Cardiac exam is regular rate and rhythm??pulmonary clear to auscultation Without evidence of peripheral neurovascular disease With her anxiety and??emotional issues the??rectal exam is deferred to the colonoscopy ?? Assessment/Plan ?? 32-year-old female??hx of??depression PTSD. She has had??ongoing issues with??bowel movements??occasionally has??very loose stools??she has noted blood in the toilet. No known history of a fissure. We are planning to proceed with a colonoscopy??to help better delineate the etiology of her bleeding Problem List/Past Medical History Ongoing ?Chronic constipation ??DM2 (diabetes mellitus, type 2) ??Fatigue ??Hypertensive disorder ??Left breast mass ??Leukocytosis ??Medication management ??Mixed hyperlipidemia ??Morbid obesity ??Nightmares associated with chronic post-traumatic stress disorder ??Obstructive sleep apnea ??Panic disorder without agoraphobia ??Polycystic ovaries ??Posttraumatic stress disorder ??Rectal bleed ??Restless legs syndrome ??Suicidal ideation ??Tremor ??Trigeminal neuralgia ??Vitamin D deficiency Historical ?Anxiety disorder ?Asthma ?Insomnia ?Moderately severe recurrent major depression ?Post-traumatic stress disorder, chronic ?Recurrent major depression-severe Procedure/Surgical History ???TLH, DAVE, lap. [facility] (05/16/2020)???PAP smear preparation (01/11/2019)???Laparoscopic bilateral salpingectomy (10/04/2018)???Mammogram - screening (03/08/2015)???Left wrist mass excision (2013)???Dilation and curettage (10/19/2011)???Tonsillectomy and adenoidectomy (10/19/1996)???Fatty tumor removal ?? Medications ??AAA - Misc Prescription, 1 strip ??gabapentin 300 mg oral capsule, 300 mg= 1 cap, Oral, every night at bedtime, 2 refills ??hydroCHLOROthiazide 25 mg oral tablet, 25 mg= 1 tab, Oral, Daily ??lisinopril 20 mg oral tablet, 20 mg= 1 tab, Oral, Daily ??loratadine 10 mg oral tablet, 10 mg= 1 tab, Oral, Daily ??LORazepam 1 mg oral tablet, 1 mg= 1 tab, Oral, TID, 1 refills ??magnesium gluconate 500 mg oral tablet, 500 mg= 1 tab, Oral, Daily, 11 refills ??omeprazole 40 mg oral delayed release capsule, 40 mg= 1 cap, Oral, Daily ??ondansetron 4 mg oral tablet, 4 mg= 1 tab, Oral, every 12 hr ??ONETOUCH DELICA CHRISTIE 33G MIS ??ONETOUCH ULTRA 2 KIT ??Rexulti 1 mg oral tablet, 1 mg= 1 tab, Oral, Daily, 2 refills ??Seroquel 50 mg oral tablet, 50 mg= 1 tab, Oral, every night at bedtime, 2 refills ??Trulicity Pen 0.75 mg/0.5 mL subcutaneous solution, 0.75 mg= 0.5 mL, Subcutaneous, every week, 11refills ??Vitamin B6 100 mg oral tablet, 100 mg= 1 tab, Oral, TID w/ Meals, 2 refills ??Vitamin D3 2000 intl units oral capsule, 2 caps, Oral, Daily, 3 refills ??Wellbutrin XL 150 mg/24 hours oral tablet, extended release, 150 mg= 1 tab, Oral, every morning, 2 refills Allergies Cilantro GRAPEFRUIT penicillins??(Urticaria) sulfa drugs??(Swollen face) Social History Alcohol ??Current, 1-2 times per year- Comments: rare use Electronic Cigarette/Vaping ??Electronic Cigarette Use: Former use, quit more than 90 days ago. Employment/School ??Unemployed, Work/School description: Medical leave until Aug-2023. Home/Environment ??Lives with Significant other, daughter. Nutrition/Health ??Caffeine intake amount: none. Sleeping concerns: No. Other Psychosocial Substance Use ??Current, Marijuana- Comments: pt. reports that she trialed mushrooms a few days ago but will not trial again. Tobacco ??Current everyday tobacco user Tobacco Use:. 1 PPD per day. Family History ??Cerebrovascular accident: Aunt/Uncle. ??Chronic obstructive lung disease: Grandmother (M). ??Diabetes mellitus: Aunt/Uncle, Grandmother (M) and Grandmother (P). ??Hepatic failure: Grandmother (M). ??Kidney disease: Grandmother (M). ??Myocardial infarction: Aunt/Uncle. ??Sexual abuse: Father. ? Immunizations ??Vaccine ??Date ??Status ??influenza virus vaccine, inactivated ??08/08/2022 ??Given ??influenza virus vaccine, live ??07/20/2021 ??Recorded ??SARS-CoV-2 (COVID-19) mRNA-1273 vaccine ??03/09/2021 ??Recorded ??SARS-CoV-2 (COVID-19) mRNA-1273 vaccine ??02/09/2021 ??Recorded ??influenza virus vaccine, live ??07/11/2020 ??Recorded ??influenza virus vaccine, live ??09/05/2019 ??Recorded Comments : pt tolerated well ??influenza virus vaccine, inactivated ??09/23/2016 ??Recorded ??influenza virus vaccine, inactivated ??07/19/2011 ??Recorded ??tetanus/diphth/pertuss (Tdap) adult/adol ??10/07/2010 ??Recorded ? Signature Line Electronically Signed on 06/18/23 10:40 AM Jonathan Cobos MD [1] [1]??Office Visit Note; Jonathan Cobos MD 06/18/2023 10:35 EDT Electronically Signed on 06/30/23 07:19 AM Sherlyn King Patient Care team information Care Team Personnel Name: Mari Diggs Position: Physician Member Role: Informed Provider Address: Address: [facility] [address] [address]- [place] Name: Rl Harmon RD Position: Dietitian Member Role: Pulp Screen Operator Care Team Related Persons Name: DECLINED, DECLINED
--- OUTSIDE RECORDS SUMMARY | 2023-08-18 11:09 | XMS_ITS | Continuity of Care Document ---
Author Name Unknown Organization [facility] Address [address] [place] [address] Care Team Providers Care Measurement Coordinator Name Role Phone Mari Diggs Primary Care Physician Encounter [facility] [id number] Date(s): 12/24/22 - 12/24/[address] [address] Discharge Disposition: Home or Self Care Attending [...] cap, # 30 cap, 2 Refill(s), Pharmacy: [id number], 163, cm, 07/01/22 17:43:00 EDT, Height/Length Dosing, [...] BID, # 14 tab, 1 Refill(s), Pharmacy: [facility], 163, [...] days, # 90 tab, 2 Refill(s), [facility], 163, cm, 07/01/22 17:43:00 EDT, Height/Length [...] days, # 30 tab, 2 Refill(s), Pharmacy: [facility], 163, cm, 07/01/22 17:43:00 EDT, Height/Length Dosing, 126, kg, 07/01/22 17:43:00 EDT, Weight Dosing Start Date: 11/07/22 Stop Date: 02/05/23 Status: Ordered Problem List Condition Confirmation Course Effective Dates Status H ealth Status Informant Anxiety disorder Confirmed 10/26/18 Active Fatigue Confirmed Active Hypertensive disorder Confirmed [...] inevitable SAB Results Laboratory List Name Date Hemoglobin A1c 12/24/22 Most recent to oldest [Reference Range]: 1 Hemoglobin A1c [4.0-6.0 %] 6.7 % *HI* (12/24/22 1:07 PM) Social History Social History Type Response Tobacco Current everyday tob acco user Tobacco Use:. 1 PPD per day. Sex Female Patient Care team information Care Team Personnel Name: Mari Diggs Position: Physician Member Role: Primary Care Physician Address: Address: [facility] [address] [address]- [place] Name: Rl Harmon RD Position: Dietitian Member Role: Steam Power Plant Operator Care Team Related Persons Name: MAGY STEVE Address: Home [address] [place] [phone]
--- NOTE | 2023-08-18 11:30 | ED.GENADUL_ITS ---
Discharge Plan Discharge Details Chief Complaint: PsychEval Primary Care Provider: Mari Diggs ED Provider: Elijah Lewis Home Meds and New Rx's Prescriptions: No Action polyethylene glycol 3350 [Miralax] 17 gram/dose powder 17 g PO DAILY docusate sodium 100 mg capsule 200 mg PO DAILY moxifloxacin 400 mg tablet 400 mg PO Q24H Hold Instructions: Prescription Finished Rexulti 2 mg tablet 2 mg PO DAILY senna 8.6 mg capsule 8.6 mg PO DAILY bupropion HCl [Wellbutrin XL] 150 mg tablet extended release 24 hr 150 mg PO QAM loratadine [Allergy Relief (loratadine)] 10 mg tablet 10 mg PO DAILY cholecalciferol (vitamin D3) 125 mcg (5,000 unit) capsule 125 mcg PO DAILY gabapentin 300 mg capsule 300 mg PO QHS hydrochlorothiazide 25 mg tablet 25 mg PO DAILY lisinopril 20 mg tablet 20 mg PO DAILY metformin 500 mg tablet 500 mg PO BID omeprazole 40 mg capsule,delayed release(DR/EC) 40 mg PO DAILY bupropion HCl [Wellbutrin XL] 300 mg tablet extended release 24 hr 300 mg PO QAM Trulicity 0.75 mg/0.5 mL pen injector 0.75 mg subcut QWEEK Hold Instructions: Pt Stopped/Never Started quetiapine 25 mg tablet Hold Instructions: Pt Stopped/Never Started quetiapine 50 mg tablet 50 mg PO .night lorazepam 1 mg tablet 1 mg PO TID Medical Decision Making This dictation utilizes [id number] dictation software and may contain unedited grammatical errors. 38 y/o F presents to ED today with a chief complaint of severe depression, denies SI/HI, wants to return to in-patient care at [facility], last stay this past March. States she has been intermittently adherent to her psych meds, and has had severe anhedonia for weeks. Onset and characteristics include chronic severe depression. Patient has relevant history of PTSD, depression, panic disorder, t2DM. Family and social history: exposure to suicide in her paternal Uncle. Patient endorses 5-6 suicide attempts in their lifetime, with most recent in March of this year. Pertinent exam findings / vital signs include benign cardiopulmonary status, nontoxic vitals, neuro intact, tearful but cooperative and pleasant and agreeing to remain safe and courteous to staff while in the ED and to not escalate the situation. Differential / pathologies of concern include depression. Diagnostic studies of: -basic labs for Interventions of: -gave at-home dosing of Ativan, notified [facility] who will present to ED for evaluation- patient is very calm and cooperative at this time and can remain in ER bed 9 for short time for mental health eval- will likely transfer to monitored room in [facility] w/ sitter upon full mental evaluation. -one-to-one activated, patient comfortable with boyfriend in Zone B, her at-home medicine regimen is ordered on schedule here. ED Course: Patient was severe anhedonia presents with severe depressive thoughts, denies SI, denies method or plan, states she just does not feel like participating in her life lately. She wants to be inpatient at [facility], she has been evaluated by Fiorella from [facility]. Voluntary for inpatient search but she does have SI attempt history back in March as well as 5-6 lifetime attempts with family history of suicide in her uncle. I would advise reevaluation if she wishes to leave but it does not preclude her from having a reasonable discharge plan if she cannot be placed. Findings not consistent with overt suicidality, I would say that she is low to moderate risk with likely inpatient recommendation. Disposition of Severe Depression. Patient verbalized understanding of the plan and return to ED criteria and engaged in shared decision making. Medical Records Medical records reviewed: Yes I reviewed the patient's medical records. Lab Data Lab results reviewed: Yes I reviewed the patient's lab results. Labs: Laboratory Tests Range/Units 08/18/23 08/18/23 11:10 12:35 WBC (4.4-10.8) 10^3/uL 13.03 H RBC (3.93-5.22) 10^6/uL 5.03 Hgb (11.2-15.7) g/dL 14.2 Hct (36.0-46.0) % 42.3 MCV (80-95) fL 84 MCH (27.0-33.0) pg 28.2 MCHC (32.0-36.0) % 33.6 RDW (11.7-14.6) % 14.8 H Plt Count (130-400) 10^3/uL 382 MPV (8.0-11.0) fL 10.3 Immature Gran % 0.5 Neutrophils % 64.6 Lymphocytes % 29.0 Monocytes % 4.4 Eosinophils % 1.3 Basophils % 0.2 Nucleated RBC % (0.0-0.3) % 0.0 Absolute Neutrophils (1.2-6.7) 10^3/uL 8.42 H Absolute Lymphocytes (1.2-3.4) 10^3/uL 3.78 H Absolute Monocytes (0.1-0.8) 10^3/uL 0.57 Absolute Eosinophils (0.0-0.7) 10^3/uL 0.17 Absolute Basophils (0.0-0.2) 10^3/uL 0.03 Sodium (136-145) mmol/L 140 Potassium (3.5-5.1) mmol/L 3.7 Chloride (98-107) mmol/L 102 Carbon Dioxide (21.0-32.0) mmol/L 24.6 Anion Gap (3-11) mmol/L 13.4 H BUN (7-18) mg/dL 8 Creatinine (0.55-1.02) mg/dL 0.8 Est GFR (CKD-EPI 2020) (mL/min/1.73m2) 96.06 Glucose (74-106) mg/dL 194 H Calcium (8.5-10.1) mg/dL 10.4 H Total Bilirubin (0.2-1.0) mg/dL 0.2 AST (15-37) U/L 31 ALT (14-59) U/L 58 Alkaline Phosphatase (46-116) U/L 101 Total Protein (6.4-8.2) g/dL 7.6 Albumin (3.4-5.0) g/dL 3.8 TSH (0.36-3.74) uIU/mL 0.72 Salicylates (<2.8) mg/dL 5.1 Urine Opiates Screen (Negative) Negative Urine Methadone Screen (Negative) Negative Acetaminophen (10-30) ug/mL < 2 Ur Barbiturates Screen (Negative) Negative Ur Tricyclics Screen (Negative) Negative Ur Amphetamines Screen (Negative) Negative U Benzodiazepines Scrn (Negative) Negative Urine Cocaine Screen (Negative) Negative Ur THC Screen (Negative) Positive A HPI General Date/Time Provider Initiated Documentation: 08/18/23 10:54 . HPI Narrative: 38 year-old female presents to ED today by POV/ambulating with her significant other with a chief complaint of depression, states she has been having severe anhedonia lately with no desire to participate in her life, sleeping a lot, not taking her medications on time the past couple weeks but has been adherent today with onset for weeks. Patient had an admission at [facility] back in March, and sees [facility] currently. Quality described as severe depression, wants to sleep all the time- denies suicidal thoughts, denies plan, denies method, denies desire to harm self or others, denies hallucinations/walt, no radiation to chest pain, shortness of breath, fever, nausea/vomiting, dysuria, bowel changes, endorses tolerating hydration and nutrition intake normally. Severity is described as 07/28. Palliating factors include nothing specific. Provoking factors include nothing specific. Events leading up to the incident/Associated Symptoms: Patient endorses longstanding history of treatment resistant depression and PTSD. Patient not anticoagulated. Related Data Home Medications Medication Instructions Recorded Confirmed brexpiprazole 2 mg tablet (Rexulti) 2 mg PO DAILY 07/01/22 08/18/23 bupropion HCl 150 mg 24 hr tablet, 150 mg PO QAM 07/01/22 08/18/23 extended release (Wellbutrin XL) bupropion HCl 300 mg 24 hr tablet, 300 mg PO QAM 07/01/22 08/18/23 extended release (Wellbutrin XL) cholecalciferol (vitamin D3) 125 125 mcg PO DAILY 07/01/22 08/18/23 mcg (5,000 unit) capsule dulaglutide 0.75 mg/0.5 mL 0.75 mg subcut QWEEK 07/01/22 08/18/23 subcutaneous pen injector (Trulicity) gabapentin 300 mg capsule 300 mg PO QHS 07/01/22 08/18/23 hydrochlorothiazide 25 mg tablet 25 mg PO DAILY 07/01/22 08/18/23 lisinopril 20 mg tablet 20 mg PO DAILY 07/01/22 08/18/23 loratadine 10 mg tablet (Allergy 10 mg PO DAILY 07/01/22 08/18/23 Relief (loratadine)) metformin 500 mg tablet 500 mg PO BID 07/01/22 08/18/23 moxifloxacin 400 mg tablet 400 mg PO Q24H 07/01/22 08/18/23 omeprazole 40 mg capsule,delayed 40 mg PO DAILY 07/01/22 08/18/23 release sennosides 8.6 mg capsule (senna) 8.6 mg PO DAILY 07/01/22 08/18/23 docusate sodium 100 mg capsule 200 mg PO DAILY 07/07/22 08/18/23 polyethylene glycol 3350 17 17 g PO DAILY 07/07/22 08/18/23 gram/dose oral powder (Miralax) lorazepam 1 mg tablet 1 mg PO TID 08/18/23 08/18/23 quetiapine 25 mg tablet mg 08/18/23 quetiapine 50 mg tablet 50 mg PO .night 08/18/23 08/18/23 Allergies Allergy/AdvReac Type Severity Reaction Status Date / Time grapefruit Allergy Intermediate Hives Unverified 08/18/23 11:05 Penicillins Allergy Unknown Hives Verified 08/18/23 11:05 Sulfa (Sulfonamide Allergy Unknown Swelling/Ed Verified 08/18/23 11:05 Antibiotics) chon General Stated Complaint: PsychEval RAMO: 2 Review of Systems All systems reviewed & are unremarkable except as noted in HPI and below PFSH All Active Problems Trigeminal neuralgia (Acute) Asthma (Chronic) Obesity (Chronic) Smoker (Acute) Abdominal pain (Acute) Vitamin D deficiency (Acute) Restless leg syndrome (Acute) MICHELLE (obstructive sleep apnea) (Chronic) PTSD (post-traumatic stress disorder) (Acute) Fatigue (Acute) Family history of Crohn's disease (Acute) Diverticulitis (Chronic) Medical History Anxiety History of PCOS Leukocytosis Surgical History H/O adenoidectomy H/O bilateral salpingectomy Hx of tonsillectomy Family History (Updated 07/07/22 @ 20:49 by Will Yoo MD) Mother Crohn disease Maternal Grandmother Crohn disease Maternal Aunt Crohn disease Social History Smoking risk assessment performed?: No Drug use: Daily Substance use type: marijuana Exam Narrative Exam Narrative: GENERAL APPEARANCE: Well-nourished, non-toxic, awake and alert, atraumatic, no acute distress. SKIN: Warm, pink, dry, intact, without rashes/lesions/ulcerations. HEAD: Normocephalic, atraumatic, normal hair distribution for gender/age. EYES: Pupils PERRLA, EOMs intact without nystagmus, normal conjunctiva, no exudates on lids/lashes. ENT: Nares patent, no circumoral cyanosis, no facial swelling NECK: Supple, trachea midline, painless cervical ROM. LUNGS/CHEST: Lungs CTA bilaterally, non-labored respirations, normal A/P diameter, symmetrical expansion, no chest wall deformity HEART (CV/PV): Regular rate and rhythm without murmur, no peripheral edema, no JVD. ABDOMEN: Soft, non-distended, no guarding. MSK: Normal ROM, no swelling/deformity to bilateral UEs or LEs, moving all extremities without weakness, no cyanosis, spine midline without tenderness, normal curvature. NEURO: Mental Status AAOx4 - alert to person, place, time, events No facial droop, no forehead involvement. Motor: No focal weakness - strength 5/5 in bilateral UEs and LEs, proximal and distal, symmetric. Sensory: sensation intact to light touch globally. Gait normal: patient ambulated without ataxia into ED room. PSYCH: dysthymic, cooperative, pleasant, appropriate speech, tearful, not agitated, calm and agreeing to remain safe while in department, denies suicida lity/homicidality, states her most focal complaint is anhedonia Course Vital Signs Vital signs: Vital Signs Temperature 37.2 C 08/18/23 10:59 Pulse 100 H 08/18/23 10:59 Respiratory Rate 20 08/18/23 10:59 Blood Pressure 140/72 08/18/23 10:59 Pulse Oximetry 99 08/18/23 10:59 Temperature 37.2 C 08/18/23 10:59 Pulse 100 H 08/18/23 10:59 Respiratory Rate 20 08/18/23 10:59 Respiratory Effort Normal 08/18/23 11:02 Blood Pressure 140/72 08/18/23 10:59 Blood Pressure Position Sitting 08/18/23 10:59 Pulse Oximetry 99 08/18/23 10:59 Oxygen Delivery Method Room Air 08/18/23 10:59 Oxygen Flow Rate 0 08/18/23 10:59 PAWSS Have you Been Recently Intoxicated or Drunk Within the Last 30 days?: No Have you Ever Experienced Previous Episodes of Alcohol Withdrawal?: No Have you ever Experienced Withdrawal Seizures?: No Have you ever Experienced Delirium Tremens(DT)s?: No Have you ever undergone Alcohol Rehabilitation Treatment (i.e, inpt ot outpatient treatment programs)?: No Have you ever Experienced Blackouts?: No Have you ever Combined Alcohol with other Downers within the last 90 days?: No Have you ever Combined Alcohol with any other Substance of Abuse during the last 90 days?: No Positive Blood Alcohol level on Presentation? [PCS.BAL]: No Evidence of Increased Autonomic Activity (i.e. HR>120, tremor, sweating, agitation, nausea)?: No Result: 0
[2023-08-18] MEDS: LORazepam 1 MG TAB PO ×2 (11:35→20:04)
[2023-08-18 12:43] LABS: Abs Immature Grans 0.07 10^3/uL (0.0-0.06); Absolute Basophil Count 0.03 10^3/uL (0.0-0.2); Absolute Eosinophil Count 0.17 10^3/uL (0.0-0.7); Absolute Lymphocyte Count 3.78 10^3/uL (1.2-3.4); Absolute Monocyte Count 0.57 10^3/uL (0.1-0.8); Basophils % 0.2; Eosinophils % 1.3; HCT 42.3 % (36.0-46.0); HGB 14.2 g/dL (11.2-15.7); Immature Grans % 0.5; MCH 28.2 pg (27.0-33.0); MCHC 33.6 % (32.0-36.0); MCV 84 fL (80-95); MPV 10.3 fL (8.0-11.0); Monocytes % 4.4; Neutrophils % 64.6; Platelet Count 382 10^3/uL (130-400); RBC 5.03 10^6/uL (3.93-5.22); RDW 14.8 % (11.7-14.6); RDW-SD 44.7 fL; WBC 13.03 10^3/uL (4.4-10.8)
[2023-08-18 12:44] LABS: Absolute Neutrophil Count 8.42 10^3/uL (1.2-6.7)
--- NOTE | 2023-08-18 12:49 | CMSP_ITS ---
Date of service: 08/18/23 Time of Service: 12:49 Care Management Safety Plan Status Status: Voluntary Reason for Wait Reason for Wait: Inpatient Admission Safety Plan Safety Plan: CHIEF COMPLAINT: Dorothy presents in the ED seeking a voluntary psychiatric hospitalization. She denies SI currently but reports severe depression and anhedonia for several weeks. She has a history of PTSD, panic disorder and depression and has had several suicide attempts over the years. Dorothy shares she has been psychiatrically hospitalized at the [facility] and hopes to re turn to that facility. She states her daughter is currently inpatient at the [facility], so would not be opposed to going to the [place] if she is unable to go to [place]. CM explains the psychiatric hospitalization process to patient and she is aware that she will be transferred to the first facility that offers her a bed. Dorothy was evaluated by Fiorella of [facility] today and found to meet criteria for a voluntary hospitalization. She will remain at [facility] and will be reassessed daily by [facility] until a placement is secured for her. CM will continue to follow. VOLUNTARY FOR INPATIENT PSYCHIATRIC STABILIZATION. Patient is appropriate in all interactions since arriving at [facility]; Pt has demonstrated appropriate coping and communication skills, has articulated his or her needs and concerns and is fully engaged during staff interactions. Safety plan has been established with patient, and care team, to adhere to patient goals, identify restrictions based on behavioral status, address n utrition, and determine allowed personal belongings, tools for hygiene and personal care. Determine level of activity including ambulation, level of supervision, visitors, and determine privileges based on behaviors and level of engagement by pt. SAFETY PLAN: 1. Will remain on suicide precautions. In Paper Clothes 2. Will remain in room under direct supervision of one-on-one staff at all times provided by [employer], BLUEBERRY GROWER, INSULATION HELPER processor inspector. 3. May have paper cups, plates, finger foods as well as a cardboard spoon with which to eat meals. 4. Follow [facility] Management of the Admitted Behavioral Health Patient policy. 5. Shower permitted with escort at RN discretion in ED; available without restriction on Zone B. 6. No personal belongings-soft items permitted at RN discretion. 7. Visitors: Per [facility] Visitor Policy and at RN discretion.. 8. Activities: soft cart items, music tablet, television, and other activities at RN discretion. 9. Bathroom privileges with escort in the ED, available without limitation on Zone B. 10. Phone: contact limited to family at this time, via [employer] hospital phone at RN discretion. 11. Due to VOLUNTARY status, if patient wishes to leave [facility], staff will contact [facility] Crisis Screener ([phone]) and On-Call Director Of Academic Support ([phone]) as soon as possible. In the event of elopement, notify [facility] Police ([phone]). Patient is currently voluntarily at [facility] and seeking inpatient admission when a bed becomes available. [facility] Frontline Cartoonist Special Effects will continue seeking placement. Please contact the Microbiology Technician Director Of Academic Support ([phone]) and [facility] Cr leah Worker ([phone]) for any needed changes in the Safety Plan. Safety plan has been provided to interdepartmental care team.
--- NOTE | 2023-08-18 12:49 | PDOC.CMSAFE ---
Date of service: 08/18/23 Time of Service: 12:49 Care Management Safety Plan Status Status: Voluntary Reason for Wait Reason for Wait: Inpatient Admission Safety Plan Safety Plan: CHIEF COMPLAINT: Dorothy presents in the ED seeking a voluntary psychiatric hospitalization. She denies SI currently but reports severe depression and anhedonia for several weeks. She has a history of PTSD, panic disorder and depression and has had several suicide attempts over the years. Dorothy shares she has been psychiatrically hospitalized at the [facility] and hopes to return to that facility. She states her daughter is currently inpatient at the [facility], so would not be opposed to going to the [facility] if she is unable to go to [place]. CM explains the psychiatric hospitalization process to patient and she is aware that she will be transferred to the first facility that offers her a bed. Dorothy was evaluated by Fiorella of [facility] today and found to meet criteria for a voluntary hospitalization. She will remain at [facility] and will be reassessed daily by [facility] until a placement is secured for her. CM will continue to follow. VOLUNTARY FOR INPATIENT PSYCHIATRIC STABILIZATION. Patient is appropriate in all interactions since arriving at [facility]; Pt has demonstrated appropriate coping and communication skills, has articulated his or her needs and concerns and is fully engaged during staff interactions. Safety plan has been established with patient, and care team, to adhere to patient goals, identify restrictions based on behavioral status, address nutrition, and determine allowed personal belongings, tools for hygiene and personal care. Determine level of activity including ambulation, level of supervision, visitors, and determine privileges based on behaviors and level of engagement by pt. SAFETY PLAN: 1. Will remain on suicide precautions. In Paper Clothes 2. Will remain in room under direct supervision of one-on-one staff at all times provided by [employer], GLASSBLOWER, AUDIOLOGY DIRECTOR adzing and boring machine feeder. 3. May have paper cups, plates, finger foods as well as a cardboard spoon with which to eat meals. 4. Follow [facility] Management of the Admitted Behavioral Health Patient policy. 5. Shower permitted with escort at RN discretion in ED; available without restriction on Zone B. 6. No personal belongings-soft items permitted at RN discretion. 7. Visitors: Per [facility] Visitor Policy and at RN discretion.. 8. Activities: soft cart items, music tablet, television, and other activities at RN discretion. 9. Bathroom privileges with escort in the ED, available without limitation on Zone B. 10. Phone: contact limited to family at this time, via cordless hospital phone at RN discretion. 11. Due to VOLUNTARY status, if patient wishes to leave [facility], staff will contact [facility] Crisis Screener ([phone]) and On-Call Manager Cafe ([phone]) as soon as possible. In the event of elopement, notify [facility] Police ([phone]). Patient is currently voluntarily at [facility] and seeking inpatient admission when a bed becomes available. [facility] Frontline Micro Paleontologist will continue seeking placement. Please contact the Costume Director Manager Cafe ([phone]) and [facility] Micro Paleontologist ([phone]) for any needed changes in the Safety Plan. Safety plan has been provided to interdepartmental care team.
[2023-08-18 13:19] LABS: *AMPHETAMINES SCREEN URINE Negative (Negative); *BARBITURATES SCREEN URINE Negative (Negative); *BENZODIAZEPINES SCREEN URINE Negative (Negative); Cannabinoids THC Positive (Negative); Cocaine Screen,Urine Negative (Negative); METHADONE URINE SCREEN Negative (Negative); OPIATES URINE SCREEN Negative (Negative); Tricyclic Antidepressants Negative (Negative)
[2023-08-18 13:21] LABS: ALT 58 U/L (14-59); AST 31 U/L (15-37); Albumin 3.8 g/dL (3.4-5.0); Alkaline Phosphatase 101 U/L (46-116); Anion Gap 13.4 mmol/L (3-11); BUN 8 mg/dL (7-18); Bilirubin, Total 0.2 mg/dL (0.2-1.0); CO2 24.6 mmol/L (21.0-32.0); CREATININE 0.8 mg/dL (0.55-1.02); Calcium 10.4 mg/dL (8.5-10.1); Chloride 102 mmol/L (98-107); Estimated GFR 96.06 (mL/min/1.73m2); Glucose 194 mg/dL (74-106); Potassium 3.7 mmol/L (3.5-5.1); Sodium 140 mmol/L (136-145); TSH (W/Ref FT4) 0.72 uIU/mL (0.36-3.74); Total Protein 7.6 g/dL (6.4-8.2)
[2023-08-18 13:23] LABS: Acetaminophen < 2 ug/mL (10-30); Salicylate 5.1 mg/dL (<2.8)
[2023-08-18] MEDS: Nicotine 4 MG GUM CH (13:48)
--- NOTE | 2023-08-18 14:33 | PDOC.MHCN ---
Date of service: 08/18/23 Time of Service: 14:33 Mental Health Emergency Note Release [facility] release signed:: Yes Reason for Visit The client called in on Thursday hysterically crying saying she needed to go back to [place]. She reported she was there in March. The client's assessment on Thursday was completed over the phone and she was advised to report to [facility] for placement. The client did this and then was encouraged to go home to wait for treatment and so this clinician advised her to report to [facility] instead. [facility] ES has been calling in daily and has not found any relief. She called this am to report she was reporting to [facility] via her boyfriend to seek treatment. In the last 2 weeks has the pt presented for prior to today?: Yes, presented at ED at another facility Client Information Client is: New Well Housed: Yes Non Suicidal Self Injury Current: No History: No Safety Risk/Harm to Self or Others Current Ideation to Harm Self or Others: No Risk: Does risk to harm exist?: yes. Access to means: Yes. Types of Means: Other weapons and Medication. Counseling provided: Yes Risk: High Risk Duty to warn indicated: No Asssessment/Mental Status Appearance: Disheveled Attitude: Cooperative Behavior: Other (Highly tearful and anxious/depressed. ) Speech: Normal Affect: Cogruent with mood Mood: Stressed, Depressed and Anxious Thought process: Unremarkable Hallucinations: No Delusions: No Attention: Unremarkable Perception: Not impaired Orientation: Fully orientated Memory: Intact Insight: Good Judgement: Good Neurovegetative Symptoms Sleep: Increase (The client reports sleeping 14-16 hours a day. ) Appetitie: Decrease Interests: Decrease Energy: Decrease Libido: Not applicable Substance Use: Do you use nicotine?: Yes Have you used substances in the last 7 days?: No Additional Issues: Assaultive/Threatening Behavior: No Medical Concerns: No Client engaged in active self harm w/weapon: No Threatening to run away: No Child reported abuse/neglect: No Voluntarily presenting for services: Yes Domestic violence is a concern: No Extreme Psychosis or extreme behavior is present: No Impression The client is a 38 year old, female who lives with her boyfriend in [facility]. She is employed at [employer] however, has been struggling to get out of bed and go to work. She displayed and increases in anxiety when trying to leave her house for the second time this week. She fears she will be treated like a dog. The client stated during the assessment I just want to give up. 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 I don't want to wake up. The client is not able to care for her responsibilities as a result of her sleeping 14-16 hours a day and then most days still can't even get out of bed. She noted that the last time she got this bad she overdosed I don't want to do that again. She scored a 24/29 on the PHQ-9. This coupled with her symptoms of increased sleep, and decrease in appetite, energy and interest suggest she is struggling with her already in place MDD. Plan/Disposition Recommended Disposition: Hospitalization facilities contacted. Plan: The client will remain at [facility] pending admission. She will be assessed daily by [facility] until such time. Person reported agreement to plan: Yes Facilities contacted if Applicable [facility] (All pending review) Not accepted, Other [facility] Not accepted, Other [facility] Not accepted, [facility], Other Reports/communication Outcome discussed with: ED/Personnel
--- NOTE | 2023-08-18 14:40 | W.EDPROG ---
Date of service: 08/18/23 Time of Service: 14:40 Medical Decision Making I have received signout. I have seen and examined the patient. She states she has chronic depression and has been hospitalized before. She is followed by Dr. Gaby Hernandez from psychiatry. I attempted to call her but she had already left the office. The patient states that her daughter was hospitalized at [facility] for behavioral issues and that may have contributed to her depression. She denies any plan but has had suicide attempts in the past. Her symptoms have gradually progressed over several weeks. She states she is not a cutter but does pick at her skin. She is to small lesions on her left arm which do not appear infected and are not actively bleeding. She is tearful but does not appear clinically intoxicated. Differential Diagnosis Differential Diagnosis: depression, PTSD Medical Records Medical records reviewed: Yes I reviewed the patient's medical records. Lab Data Lab results reviewed: Yes I reviewed the patient's lab results. Narrative I have seen and examined the patient. The patient has remained stable in the emergency department. I will be signing her out to Dr. Brothers. Sign Out Sign Out Data: Sign Out Comment: Patient voluntary in-patient bed search, denies overt SI/HI, has history of 5-6 lifetime attempts, recent March 2023, history of suicide in [place]. Most focal complaint severe anhedonia, wants to go back to [place]. Basic labs for possible in-pt admit performed, unremarkable. Home-meds ordered on schedule. No acute events during ED stay today. Last updated by Elijah Lewis PA at 08/18/23 14:29 Discharge Plan Discharge Details Chief Complaint: PsychEval Primary Care Provider: Mari Diggs ED Provider: Dixie Agarwal Home Meds and New Rx's Prescriptions: No Action polyethylene glycol 3350 [Miralax] 17 gram/dose powder 17 g PO DAILY docusate sodium 100 mg capsule 200 mg PO DAILY moxifloxacin 400 mg tablet 400 mg PO Q24H Hold Instructions: Prescription Finished Rexulti 2 mg tablet 2 mg PO DAILY senna 8.6 mg capsule 8.6 mg PO DAILY bupropion HCl [Wellbutrin XL] 150 mg tablet extended release 24 hr 150 mg PO QPM loratadine [Allergy Relief (loratadine)] 10 mg tablet 10 mg PO DAILY cholecalciferol (vitamin D3) 125 mcg (5,000 unit) capsule 125 mcg PO DAILY gabapentin 300 mg capsule 300 mg PO QHS hydrochlorothiazide 25 mg tablet 25 mg PO DAILY lisinopril 20 mg tablet 20 mg PO DAILY metformin 500 mg tablet 500 mg PO BID omeprazole 40 mg capsule,delayed release(DR/EC) 40 mg PO DAILY bupropion HCl [Wellbutrin XL] 300 mg tablet extended release 24 hr 300 mg PO QAM Trulicity 0.75 mg/0.5 mL pen injector 0.75 mg subcut QWEEK Hold Instructions: Pt Stopped/Never Started quetiapine 25 mg tablet Hold Instructions: Pt Stopped/Never Started quetiapine 50 mg tablet 50 mg PO .night lorazepam 1 mg tablet 1 mg PO TID
[2023-08-18] MEDS: QUEtiapine 25 MG TAB 50 MG PO (20:04)
[2023-08-18] MEDS: metFORMIN 500 MG TAB PO (20:04)
[2023-08-18] MEDS: Gabapentin 300 MG CAP PO (20:14)
[2023-08-18] MEDS: Gabapentin 300 MG CAP (20:24)
--- NOTE | 2023-08-19 01:51 | ED.PROG_ITS ---
Date of service: 08/19/23 Time of Service: 07:00 Medical Decision Making The patient is sleeping soundly in the ED and has no complaints at this time. 0700 Unable to sign out appropriately; suspect this is due to prior clinicians sign out. Pt. has slept all night. Depressed and asking to go to [place] for v oluntary admit. She is pending placement at this time. Pt. has slept all night. Medical Records Medical records reviewed: Yes I reviewed the patient's medical records. Lab Data Lab results reviewed: Yes I reviewed the patient's lab results. Sign Out Sign Out Data: Sign Out Comment: Patient voluntary in-patient bed search, denies overt SI/HI, has history of 5-6 lifetime attempts, recent March 2023, history of suicide in [place]. Most focal complaint severe anhedonia, wants to go back to [place]. Basic labs for possible in-pt admit performed, unremarkable. Home-meds ordered on schedule. No acute events during ED stay today. Last updated by Elijah Lewis PA at 08/18/23 14:29 Discharge Plan Discharge Details Chief Complaint: PsychEval Primary Care Provider: Mari Diggs ED Provider: Niki Brothers Home Meds and New Rx's Prescriptions: No Action polyethylene glycol 3350 [Miralax] 17 gram/dose powder 17 g PO DAILY docusate sodium 100 mg capsule 200 mg PO DAILY moxifloxacin 400 mg tablet 400 mg PO Q24H Hold Instructions: Prescription Finished Rexulti 2 mg tablet 2 mg PO DAILY senna 8.6 mg capsule 8.6 mg PO DAILY bupropion HCl [Wellbutrin XL] 150 mg tablet extended release 24 hr 150 mg PO QPM loratadine [Allergy Relief (loratadine)] 10 mg tablet 10 mg PO DAILY cholecalciferol (vitamin D3) 125 mcg (5,000 unit) capsule 125 mcg PO DAILY gabapentin 300 mg capsule 300 mg PO QHS hydrochlorothiazide 25 mg tablet 25 mg PO DAILY lisinopril 20 mg tablet 20 mg PO DAILY metformin 500 mg tablet 500 mg PO BID omeprazole 40 mg capsule,delayed release(DR/EC) 40 mg PO DAILY bupropion HCl [Wellbutrin XL] 300 mg tablet extended release 24 hr 300 mg PO QAM Trulicity 0.75 mg/0.5 mL pen injector 0.75 mg subcut QWEEK Hold Instructions: Pt Stopped/Never Started quetiapine 25 mg tablet Hold Instructions: Pt Stopped/Never Started quetiapine 50 mg tablet 50 mg PO .night lorazepam 1 mg tablet 1 mg PO TID
[2023-08-19] MEDS: Omeprazole 20 MG CAPCR 40 MG PO (07:52)
[2023-08-19 08:46] VITALS: BP 137/81; PULSE 104; RESP 16; O2SAT 100
[2023-08-19] MEDS: buPROPion-XL 150 MG TABCR 450 MG PO (08:48)
[2023-08-19] MEDS: metFORMIN 500 MG TAB PO (08:50)
[2023-08-19] MEDS: LORazepam 1 MG TAB PO (08:50)
[2023-08-19] MEDS: Cholecalciferol (Vitamin D3) 1,000 UNIT TAB 5000 UNITS PO (08:51)
[2023-08-19] MEDS: Lisinopril 20 MG TAB PO (08:51)
[2023-08-19] MEDS: Loratidine 10 MG TAB PO (08:51)
[2023-08-19] MEDS: hydroCHLOROthiazide 25 MG TAB PO (08:52)
--- NOTE | 2023-08-19 11:52 | W.EDPROG ---
Date of service: 08/19/23 Time of Service: 11:52 Medical Decision Making Patient accepted in signout. She was voluntary admission for increased depression and suicidal ideation. She was evaluated by mental health workers this morning and accepted for placement at [place]. However the patient states that she would prefer to go home. A safety plan has been enacted by the mental health care workers who feel she is safe to go home. Return precautions advised. Sign Out Sign Out Data: Sign Out Comment: Patient voluntary in-patient bed search, denies overt SI/HI, has history of 5-6 lifetime attempts, recent March 2023, history of suicide in [place]. Most focal complaint severe anhedonia, wants to go back to [place]. Basic labs for possible in-pt admit performed, unremarkable. Home-meds ordered on schedule. No acute events during ED stay today. Last updated by Elijah Lewis PA at 08/18/23 14:29 Discharge Plan Disposition Patient Disposition: Home Condition: Stable Discharge Details Clinical Impression: Depression Primary Care Provider: Mari Diggs ED Provider: Armaan Gay Home Meds and New Rx's Prescriptions: No Action polyethylene glycol 3350 [Miralax] 17 gram/dose powder 17 g PO DAILY docusate sodium 100 mg capsule 200 mg PO DAILY moxifloxacin 400 mg tablet 400 mg PO Q24H Hold Instructions: Prescription Finished Rexulti 2 mg tablet 2 mg PO DAILY senna 8.6 mg capsule 8.6 mg PO DAILY bupropion HCl [Wellbutrin XL] 150 mg tablet extended release 24 hr 150 mg PO QPM loratadine [Allergy Relief (loratadine)] 10 mg tablet 10 mg PO DAILY cholecalciferol (vitamin D3) 125 mcg (5,000 unit) capsule 125 mcg PO DAILY gabapentin 300 mg capsule 300 mg PO QHS hydrochlorothiazide 25 mg tablet 25 mg PO DAILY lisinopril 20 mg tablet 20 mg PO DAILY metformin 500 mg tablet 500 mg PO BID omeprazole 40 mg capsule,delayed release(DR/EC) 40 mg PO DAILY bupropion HCl [Wellbutrin XL] 300 mg tablet extended release 24 hr 300 mg PO QAM Trulicity 0.75 mg/0.5 mL pen injector 0.75 mg subcut QWEEK Hold Instructions: Pt Stopped/Never Started quetiapine 25 mg tablet Hold Instructions: Pt Stopped/Never Started quetiapine 50 mg tablet 50 mg PO .night lorazepam 1 mg tablet 1 mg PO TID Discharge Instructions Instructions: Depression (ED) Additional Instructions: Please follow your care plan and follow-up with mental health as needed. Return to the emergency department with any increased worsening of symptoms
--- NOTE | 2023-08-19 12:06 | NUR.NOTE ---
Nursing Note: PT belongings locked & secured in ZONE B #2
--- NOTE | 2023-08-19 12:09 | NUR.NOTE ---
1208 [place] [place]: [facility] called stating due to a conflict of interest, they could not accept the patient for admission. Nursing Note:
== END 2023-08-19 13:37 | disposition home or self-care (01) ==
PROVIDERS: Physician Assistant; Emergency Provider Emergency Medicine; PCP Internal Medicine
DX: F32.A Depression, unspecified (principal); R45.851 Suicidal ideations; E11.9 Type 2 diabetes mellitus without complications; Z79.84 Long term (current) use of oral hypoglycemic drugs; R45.84 Anhedonia; Z79.899 Other long term (current) drug therapy
CPT/HCPCS: 00123; 36415; 80053; 80307; 81025; 99284; 80329; 84443; 85025; J3490